=== PATIENT | female | born 1950 | race African-American/Black ===

== ENCOUNTER 2016-11-09 23:17 | Emergency (ER) | payer MEDICARE, OTHER ==
[2016-11-09] MEDS ORDERED: LORazepam 2 MG/ML DISP.SYRIN ONE (23:35)
[2016-11-09] MEDS: LORazepam 2 MG/ML DISP.SYRIN IV ONE (23:39)
--- NOTE | 2016-11-09 23:48 | ERNOTE ---
Neuro HPI ER Record Presenting Symptoms: other - seizure activity Time Seen by Provider: 11/09/16 23:35 Source: EMS, past records Immunizations: IMMUNIZATION HX Immunizations Up to Date No History of Influenza Vaccine No Hx Pneumococcal Vaccination No Allergies/Adverse Reactions: Allergies Allergy/AdvReac Type Severity Reaction Status Date / Time levetiracetam [From Keppra] Allergy Intermediate Other Verified 05/01/16 20:06 Cephalosporins Allergy Mild Hives Verified 01/02/16 13:25 cyclobenzaprine HCl Allergy Mild Hives Verified 01/02/16 13:25 [From Flexeril] acetaminophen [From Fioricet] Allergy Verified 01/02/16 13:25 butalbital [From Fioricet] Allergy Verified 01/02/16 13:25 caffeine [From Fioricet] Allergy Verified 01/02/16 13:25 tramadol Allergy Verified 01/02/16 13:25 codeine AdvReac Mild HEADACHES Verified 01/02/16 13:25 Penicillins AdvReac Mild HEADACHES Verified 01/02/16 13:25 Sulfa (Sulfonamide AdvReac Mild DIZZINESS Verified 01/02/16 13:25 Antibiotics) Home Medications: HOME MEDICATIONS Lovastatin 40 mg PO HS 05/05/14 [Last Taken Unknown] Oxybutynin Chloride [Ditropan] 5 mg PO BID PRN 05/05/14 [Last Taken Unknown] Acetaminophen [Tylenol] 1,000 mg PO Q6H PRN 03/28/15 [Last Taken Unknown] Ammonium Lactate [Amlactin] 1 appl TP BID 01/02/16 [Last Taken Unknown] Ascorbic Acid [Vitamin C] 250 mg PO DAILY 01/02/16 [Last Taken Unknown] Cholecalciferol (Vitamin D3) [Vitamin D3] 1,000 unit PO DAILY 01/02/16 [Last Taken Unknown] Diphenoxylate HCl/Atropine [Lomotil 2.5-0.025 mg Tablet] 1 each PO PRN PRN 01/01 [Last Taken Unknown] Loratadine [Claritin] 10 mg PO DAILY PRN 01/02/16 [Last Taken Unknown] PARoxetine HCL [Paxil] 20 mg PO DAILY 01/02/16 [Last Taken Unknown] Topiramate [Topamax] 100 mg PO BID 01/02/16 [Last Taken Unknown] Bisacodyl [Laxative] 10 mg PO DAILY PRN 05/01/16 [Last Taken Unknown] Calcium Carbonate/Vitamin D3 [Oyster Shell 500-Vit D3 200 Tb] 1 each PO BID [Last Taken Unknown] Guaifenesin/Dextromethorphan [Tussin Dm Syrup] 10 ml PO Q4H PRN 05/01/16 [Last Taken Unknown] Lamotrigine [Lamictal] 200 mg PO BID 05/01/16 [Last Taken Unknown] Meclizine HCl [Antivert] 25 mg PO Q4H PRN 05/01/16 [Last Taken Unknown] Polyethylene Glycol 3350 [Miralax] 17 gm PO DAILY PRN 05/01/16 [Last Taken Unknown] Sodium Chloride [Saline Mist] 2 spray NS QID PRN 05/01/16 [Last Taken Unknown] Albuterol Sulfate [Proventil Hfa] 1 puff IH Q6H PRN 11/10/16 [Last Taken Unknown ] Benzonatate [Tessalon] 100 mg PO QID PRN 11/10/16 [Last Taken Unknown] Ciprofloxacin HCl [Cipro] 500 mg PO BID #10 tab 11/10/16 [Last Taken Unknown] Meloxicam [Mobic] 15 mg PO DAILY 11/10/16 [Last Taken Unknown] Ondansetron HCl [Zofran] 4 mg PO Q4H PRN 11/10/16 [Last Taken Unknown] Phenazopyridine HCl [Urinary Pain Relief] 95 mg PO TID PRN 11/10/16 [Last Taken Unknown] - History of Present Illness Narrative: Pt was found by a roommate having a seizure. Unkown how long it had been going on. EMS was called and pt's SaO2 was low upon arrival of EMS. She was given a total of 5 mg of Valium by EMS enroute to the hospital. Upon arrival she was relaxed but soon after arrival she began tonic/ clonic movements again. She was then given 4 mg of ativan IV and stopped all seizure activity Onset: cannot confirm onset Severity: moderate, severe - Character of Deficits Baseline Cognition: Present: alert, oriented x 4 Review of Systems - Narrative Narrative: Pt remained post ictal/ sleeping due to medications throughout the night and no ROS was available - Patient's Past Medical History Patient History - Medical: GERD, Seizures, Other Patient History - Cardiac/Respiratory: No pertinent hx Patient History - Cancer: Breast, Surgical Treatment Patient History - Surgical Procedures: No surgical history, Colon Resection, Other Patient History - Other: None - Social History Living Situations: home Abuse History: No History of abuse Psych History: No pertinent hx Alcohol Use: none Drug Use: none - Immunizations Immunizations Up to Date: No Hx Pneumococcal Vaccination: No History of Influenza Vaccine: No Physical Exam - Physical Exam General Appearance: Present: wd/wn, lethargic - between seizure Ears, Nose, Throat: Present: normal ENT inspection - no oral trauma noted Neck: Present: normal inspection Respiratory: Present: no respiratory distress, normal breath sounds, no accessory muscle use Cardiovascular/Chest: Present: regular rate, rhythm, no murmur, normal peripheral pulses Gastrointestinal/Abdominal: Present: normal bowel sounds Extremity Exam: Present: normal inspection, no edema Skin Exam: Present: normal color, warm/dry Grace Coma Scale - Assess Eye Opening: To Pain - initially Motor: Withdraws to Pain Verbal: Confused - Total Coma Scale Total: 10 ED Progress - Results and Orders Patient's Lab Results:: I have reviewed the patient's lab results. Results and Orders: Laboratory Tests 11/09/16 11/09/16 11/10/16 00:08 00:08 00:50 WBC 7.7 Hgb 13.1 Hct 40.1 Plt Count 221 Sodium 143 H Potassium 3.4 Chloride 105 Carbon Dioxide 26.2 Anion Gap 15.2 H BUN 11 D Creatinine 1.10 Est GFR (Non-Af Amer) 65 BUN/Creatinine Ratio 10.0 Random Glucose 134 H Calcium 8.6 Total Bilirubin 0.4 AST 71 H ALT 58 Alkaline Phosphatase 68 Total Protein 7.5 Albumin 3.5 Urine Color Yellow Urine Appearance Cloudy Urine pH 8.0 H Ur Specific [place] 1.010 Urine Protein 30 H Urine Glucose (UA) Negative Urine Ketones Negative Urine Blood 10 H Urine Nitrate Positive H Urine Bilirubin Negative Prot Sulfosalicylic Acd 1+ Urine Urobilinogen Normal Ur Leukocyte Esterase 75 H Urine RBC 0-5 Urine WBC 0-5 Ur Epithelial Cells 0-5 Urine Bacteria 3+ H Urine Culture Comments Culture to follow Urine Opiates Screen Barbiturate Screen Ur Phencyclidine Scrn Urine Amphetamine U Benzodiazepines Scrn Urine Cocaine Screen Urine Marijuana (THC) 11/10/16 00:50 WBC Hgb Hct Plt Count Sodium Potassium Chloride Carbon Dioxide Anion Gap BUN Creatinine Est GFR (Non-Af Amer) BUN/Creatinine Ratio Random Glucose Calcium Total Bilirubin AST ALT Alkaline Phosphatase Total Protein Albumin Urine Color Urine Appearance Urine pH Ur Specific [place] Urine Protein Urine Glucose (UA) Urine Ketones Urine Blood Urine Nitrate Urine Bilirubin Prot Sulfosalicylic Acd Urine Urobilinogen Ur Leukocyte Esterase Urine RBC Urine WBC Ur Epithelial Cells Urine Bacteria Urine Culture Comments Urine Opiates Screen Negative Barbiturate Screen Negative Ur Phencyclidine Scrn Negative Urine Amphetamine Negative U Benzodiazepines Scrn Negative Urine Cocaine Screen Negative Urine Marijuana (THC) Negative - Vital Signs Patient's Vital Signs:: I have reviewed the patient's vital signs. Vital Signs: Vital Signs 11/09/16 23:20 Temperature 37.2 C Pulse Rate 131 H Respiratory 33 H Rate Blood Pressure 188/94 - Progress/Reassessment Chief Complaint: Seizure Activity Progress:: Improved Progress Note-Subjective: 11/10/16 00:26 No seizure activity at this time. Pt arouses to voice, attempts to speak but words are not comprehensible. 11/10/16 06:32 Awake and alert, carries on appropriate conversation. Departure Clinical Impression: Seizure Qualifiers: Convulsion type: unspecified Qualified Code(s): R56.9 - Unspecified convulsions UTI (urinary tract infection) Qualifiers: Urinary tract infection type: acute cystitis Hematuria presence: with hematuria Qualified Code(s): N30.01 - Acute cystitis with hematuria - Departure Disposition: Home self-care Condition: Good Instructions: Seizure, Adult, [id number] Prescriptions: Ciprofloxacin HCl [Cipro] 500 mg PO BID #10 tab
[2016-11-10 00:18] LABS: Hematocrit 40.1 % (37.0-47.0); Hemoglobin 13.1 gm/dL (12.5-16.0); Mean Cell Volume 94.8 fl (78-100); Mean Corpuscular Hgb Conc 32.7 g/dl (32-36); Mean Platelet Volume 11.1 fl (6.0-9.5); Neutrophil # 3.4 K/mm3 (1.3-6.0); Neutrophil % 43.4 % (42-75.0); Platelet Count 221 K/mm3 (150-450); Red Blood Count 4.23 M/mm3 (4.2-5.4); Red Cell Distribution Width 13.9 % (11.5-14.0); White Blood Count 7.7 K/mm3 (4.0-10.5)
--- OUTSIDE RECORDS SUMMARY | 2016-11-10 00:24 | XMS REPORT | Continuity of Care Document ---
:1950 Author Organization [facility] ([facility]) Address [address] [place] [address] Phone [phone] Care Team Providers Name Role Phone [phone], Need To Check Primary Care Provider Unavailable Source Comments This disclosure is being made pursuant to the Care Everywhere program, applicable federal and state laws, and may not contain all informaitonavailable regarding this patient.[facility] ([facility]) Active Allergies and Adverse Reactions Allergen Noted Date Severity Reactions Comments Butalbital Unknown [id number] 01/21/2009 High Headache Caffeine Seizure Cephalosporins Urticaria (Hives) Codeine OTHER hot flashes Cyclobenzaprine Unknown Latex 05/21/2010 Rash Levetiracetam Dizziness Penicillins Urticaria (Hives) Sulfadoxine Dizziness Current Medications Prescription Sig. Disp. Refills Start Date End Date Status oxybutynin (DITROPAN) 5 take 5 mg by mouth Active mg tablet 2 times daily. ammonium lactate apply 1 application Active (LACLOTION) 12 % lotion topically 2 times daily. rub in to affected area well lovaSTATIN (MEVACOR) 40 take 40 mg by mouth Active mg tablet every evening. POLYETHYLENE GLYCOL take by mouth. 1 Active 3350 (MIRALAX PO) cap full twice a day omeprazole (PRILOSEC) Take 20 mg by mouth Active 20 mg capsule daily. paroxetine (PAXIL CR) take 25 mg by mouth Active 25 mg CR tablet daily. acetaminophen (TYLENOL Take 1-2 Tabs by Active EXTRA STRENGTH) 500 mg mouth every 4 hours tablet as needed. cholecalciferol take 1,000 Units by Active (VITAMIN D) 1,000 unit mouth daily. Tab tablet calcium Take 1 Tab by mouth Active carbonate-vitamin D 3 times daily with (CALCIUM 500+D) 1,250 meals. mg-200 unit per tablet lamoTRIgine 200 mg Take 1.5 tabs (300 105 Tab 11 01/18/2012 Active tablet mg) in the AM and 2 tabs (400 mg) in the PM. Indications: Complex-Partial Epilepsy topiramate 200 mg Take 1 Tab by mouth 60 Tab 11 01/18/2012 Active tablet 2 times daily. Indications: Complex-Partial Epilepsy topiramate 50 mg tablet Take 1 Tab by mouth 60 Tab 11 01/18/2012 Active 2 times daily. 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, without mention of intractable epilepsy Immunizations Name Dates Previously Given Next Due Influenza, unspecified 06/05/2005 Social History Tobacco Use Types Packs/Day Years Used Date Never Smoker Smokeless Tobacco: Never Used Tobacco Cessation:Counseling Given: Yes Comments: Last Filed Vital Signs Vital Sign Reading Time Taken Blood Pressure 138/90 01/18/2012 1:29 PM CDT Pulse 74 01/18/2012 1:29 PM CDT Temperature 36.4 C (97.52 F) 05/21/2008 8:00 AM CDT Respiratory Rate 16 05/21/2008 8:00 AM CDT Height 1.575 m (5' 2") 01/18/2012 1:29 PM CDT Weight 91.173 kg (201 lb) 01/18/2012 1:29 PM CDT Body Mass Index 36.75 01/18/2012 1:29 PM CDT Oxygen Saturation - - Plan of Care Health Maintenance Due Date Last Done Comments HCV Screening 1950 Hepatitis B Vaccine (1 of 3 - Primary Series) 1950 Tdap Vaccine 11/22/1963 Lipid Disorder Screening 1970 Td Vaccine 1970 Cervical Cancer Screening 1982 Mammogram 1992 Colonoscopy 2002 Zoster Vaccine 2012 Influenza Vaccine: Seasonal (#1) 04/05/2016 06/05/2005 Results from Last 3 Months Not on file
[2016-11-10 00:26] LABS: Albumin * 3.5 gm/dl (3.4-5.0); Anion Gap 15.2 mmol/L (6.8-13.8); Bilirubin, Total 0.4 mg/dL (0.0-1.1); Ca. Corrected For Albumin 8.7 mg/dL (8.4-10.2); Calcium * 8.6 mg/dL (7.9-10.9); Carbon Dioxide 26.2 mmol/L (24-32.6); Potassium 3.4 mmol/L (3.4-4.6); Total Protein 7.5 gm/dL (6.2-8.2)
[2016-11-10] MEDS: NORMAL SALINE 1,000 ML IV ONE (00:40)
[2016-11-10 00:57] LABS: Urine Bilirubin Negative (NEGATIVE); Urine Ketone Negative (NEGATIVE); Urine Protein 30 mg/dL (NEGATIVE); Urine Urobilinogen Normal (NORMAL)
[2016-11-10 01:11] LABS: Urine Appearance Cloudy; Urine Bacteria 3+; Urine Blood 10 /ul (NEGATIVE); Urine Color Yellow; Urine Nitrite Positive (NEGATIVE); Urine RBC 0-5 /hpf (0-5); Urine WBC 0-5 /hpf (0-5)
[2016-11-10 01:20] LABS: Cocaine Ur Negative (NEGATIVE); Urine Barbiturate Negative (NEGATIVE); Urine Benzodiazepines Negative (NEGATIVE); Urine Opiates Negative (NEGATIVE); Urine PCP Negative (NEGATIVE); Urine THC Negative (NEGATIVE)
[2016-11-10] MEDS ORDERED: CIPROFLOXACIN HCL 250 MG TABLET ONE (06:39)
[2016-11-10] MEDS: CIPROFLOXACIN HCL 250 MG TABLET PO ONE (06:40)
[2016-11-10 06:54] VITALS: BP 110/67
== END 2016-11-10 07:29 | disposition home or self-care (01) ==
LOC: ER 23:17
DX: R56.9 Unspecified convulsions (principal); N30.01 Acute cystitis with hematuria; K21.9 Gastro-esophageal reflux disease without esophagitis

== ENCOUNTER 2017-01-01 21:33 | Inpatient (IN) | payer MEDICARE, OTHER ==
--- NOTE | 2017-01-01 21:48 | ERNOTE ---
Dizziness ER Record Date of Service: 01/01/17 Presenting Symptoms: dizziness Time Seen by Provider: 01/01/17 21:40 Source: patient Exam Limitations: clinical condition - POOR HISTORIAN, ENDENTULOUS, MUMBLY SPEECH WITH? CONFUSION, POSSIBLY POST -ICTAL. . Immunizations: IMMUNIZATION HX Immunizations Up to Date No History of Influenza Vaccine No Hx Pneumococcal Vaccination No Allergies/Adverse Reactions: Allergies Allergy/AdvReac Type Severity Reaction Status Date / Time levetiracetam [From Keppra] Allergy Intermediate Other Verified 05/01/16 20:06 Cephalosporins Allergy Mild Hives Verified 01/02/16 13:25 cyclobenzaprine HCl Allergy Mild Hives Verified 01/02/16 13:25 [From Flexeril] acetaminophen [From Fioricet] Allergy Verified 01/02/16 13:25 butalbital [From Fioricet] Allergy Verified 01/02/16 13:25 caffeine [From Fioricet] Allergy Verified 01/02/16 13:25 tramadol Allergy Verified 01/02/16 13:25 codeine AdvReac Mild HEADACHES Verified 01/02/16 13:25 Penicillins AdvReac Mild HEADACHES Verified 01/02/16 13:25 Sulfa (Sulfonamide AdvReac Mild DIZZINESS Verified 01/02/16 13:25 Antibiotics) Home Medications: HOME MEDICATIONS Lovastatin 40 mg PO HS 05/05/14 [Last Taken Unknown] Oxybutynin Chloride [Ditropan] 5 mg PO BID PRN 05/05/14 [Last Taken Unknown] Acetaminophen [Tylenol] 1,000 mg PO Q8H PRN 03/28/15 [Last Taken Unknown] Ammonium Lactate [Amlactin] 1 appl TP BID 01/02/16 [Last Taken Unknown] Ascorbic Acid [Vitamin C] 250 mg PO DAILY 01/02/16 [Last Taken Unknown] Cholecalciferol (Vitamin D3) [Vitamin D3] 1,000 unit PO DAILY 01/02/16 [Last Taken Unknown] Diphenoxylate HCl/Atropine [Lomotil 2.5-0.025 mg Tablet] 1 each PO PRN PRN 01/01 [Last Taken Unknown] Loratadine [Claritin] 10 mg PO DAILY PRN 01/02/16 [Last Taken Unknown] PARoxetine HCL [Paxil] 20 mg PO DAILY 01/02/16 [Last Taken Unknown] Topiramate [Topamax] 100 mg PO BID 01/02/16 [Last Taken Unknown] Bisacodyl [Laxative] 10 mg PO DAILY PRN 05/01/16 [Last Taken Unknown] Calcium Carbonate/Vitamin D3 [Oyster Shell 500-Vit D3 200 Tb] 1 each PO BID [Last Taken Unknown] Meclizine HCl [Antivert] 25 mg PO Q4H PRN 05/01/16 [Last Taken Unknown] Polyethylene Glycol 3350 [Miralax] 17 gm PO DAILY PRN 05/01/16 [Last Taken Unknown] Sodium Chloride [Saline Mist] 2 spray NS QID PRN 05/01/16 [Last Taken Unknown] guaiFENesin/DEXTROMETHORPHAN [Tussin Dm Syrup] 10 ml PO Q4H PRN 05/01/16 [Last Taken Unknown] lamoTRIgine [Lamictal] 200 mg PO BID 05/01/16 [Last Taken Unknown] Albuterol Sulfate [Proventil Hfa] 1 puff IH Q6H PRN 11/10/16 [Last Taken Unknown ] Benzonatate [Tessalon] 100 mg PO QID PRN 11/10/16 [Last Taken Unknown] Meloxicam [Mobic] 15 mg PO DAILY 11/10/16 [Last Taken Unknown] Ondansetron HCl [Zofran] 4 mg PO Q4H PRN 11/10/16 [Last Taken Unknown] Phenazopyridine HCl [Urinary Pain Relief] 95 mg PO TID PRN 11/10/16 [Last Taken Unknown] Calcium Carbonate [Tums Ultra Strength] 750 mg PO PRN PRN 01/02/17 [Last Taken Unknown] Mag Hydrox/Aluminum Hyd/Simeth [Maalox Advanced Suspension] 10 ml PO BID PRN [Last Taken Unknown] Menthol [Absorbine Pain Relieving] 1 appl TP TID PRN 01/02/17 [Last Taken Unknown] Topiramate [Topamax] 50 mg PO 0900 01/02/17 [Last Taken Unknown] - History of Present Illness Narrative: PT HERE FOR HX THAT SHE GOT DIZZY AND 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 UNCLEAR IF IT WAS WITNESSED. EMS WAS CALLED TO TRANSPORT HERE. SHE HAS A HX OF SEIZURES BUT NO SEIZURE ACTIVITY WAS REPORTED. SHE APPARENTLY LIVES WITH AN OLDER GENTLEMAN ACCORDING TO EMS AND UNKNOWN IF HE WITNESSED THE REPORTED EVENT. SHE IS REPORTED TO BE ON DILANTIN AND HAS A PAST HX OF POLIO WITH LEFT SIDED WEAKNESS. THE PATIENT IS NOT A GOOD HISTORIAN. SHE DID C/O OF SOME NECK PAIN TO EMS AT THE SCENE SO THEY APPLIED C-COLLAR. Timing and Duration: cannot confirm onset Review of Systems - Review of Systems Constitutional: Present: See HPI - PT IS A POOR UNRELIABLE HISTORIAN AT PRESENT. - Patient's Past Medical History Patient History - Medical: GERD, Seizures, Other Patient History - Cardiac/Respiratory: No pertinent hx Patient History - Cancer: Breast, Surgical Treatment Patient History - Surgical Procedures: No surgical history, Colon Resection, Other Patient History - Other: None - Family History Mother Family History - Medical: Family History - Cancer: Other - Social History Living Situations: home Abuse History: No History of abuse Psych History: No pertinent hx Alcohol Use: none Drug Use: none - Immunizations Immunizations Up to Date: No Hx Pneumococcal Vaccination: No History of Influenza Vaccine: No Physical Exam - Physical Exam General Appearance: Present: wd/wn, alert, no apparent distress - ELDERLY LADY WITH SLOW MUMBLING SPEECH THOUGH IS NOW A & O AND DENIES ANY COMPLAINTS AND HAS NO OBVIOUS FOCAL DEFICIT. Eye Exam: Normal inspection: bilateral - HER EYES DO APPEAR TO BE PROPTOTIC. , PERRL: bilateral, EOMI: bilateral Ears, Nose, Throat: Present: normal except - - EDENTULOUS AND HAS DRY MUCOUS MEMBRANE. Neck: Present: normal inspection, supple, full range of motion, tender posterior midline - SHE INITIALLY C/O POST NECK PAIN, EMS APPLIED COLLAR, CT- CERVICAL HAS RETURNED NEGATIVE AND COLLAR REMOVED AND NOW WITH NO NECK PAIN Respiratory: Present: no respiratory distress, normal breath sounds, no accessory muscle use, chest nontender, lungs clear Cardiovascular/Chest: Present: regular rate, rhythm, no murmur, normal peripheral pulses Gastrointestinal/Abdominal: Present: normal bowel sounds, nontender, soft, no organomegaly, other - OBESE ABDOMEN Back Exam: Present: normal inspection, normal range of motion, no CVA tenderness , no vertebral tenderness Extremity Exam: Present: normal except - - MILD LEFT EXT WEAKNESS, SHE STATES THIS IS CHRONIC FROM HX OF POLIO Skin Exam: Present: normal color, warm/dry ED Progress - Results and Orders Patient's Lab Results:: I have reviewed the patient's lab results. Results and Orders: LABS ARE POSITIVE FOR K+ = 2.9 WHICH IS LOWER THAN RECENT VALUES RUNNING ABOUT 3.4. WBC = 14.4 WITH 65% SEGS AND BANDS. BUN / CREAT = 2.9/1.9, WHICH IS INCREASED FROM HER MOSST RECENT VALUES THAT WERE NORMAL. AND HER URINE IS POSITIVE FOR NITRITES , WBC AND 3 + BACT. CULTURE IS PENDING. I HAVE ADDED A LACTIC. SHE APPEARS NOT TO BE ON DILANTIN , DESPITE EMS REPORT. - Vital Signs Patient's Vital Signs:: I have reviewed the patient's vital signs. - EKG EKG: NSR, nonspecific ST T wave changes, unchanged from - X-Ray X-Ray #1 X-Ray: chest Interpretation: Interp. by me - UNCHANGED FROM 2014 - CT/Ultrasound CT/Ultrasound Narrative: PT WITH NO ACUTE CHANGE ON CT OF BRAIN ACCORDING TO REED . SHE HAS MARKED CEREBELLAR ATROPHY WHICH APPEARS SAME 11/2014 BY MY REVIEW. SHE ALSO HAD A NEGATIVE CT OF HER NECK. - Progress/Reassessment Progress:: Improved Progress Note-Subjective: 01/02/17 00:31 PT IS RESPONDING CLEARER , ACCORDING TO NURSES THAT KNOW HER , AT HER NORMAL STATE. SHE DENIES PAIN OR PROBLEMS EXCEPT IS THRISTY. SHE CAN NOT GIVE BETTER HX THAN EARLIER EXCEPT THAT SHE HAD TO GET UP TO GO TO THE BATHROOM AND FELL. SHE DOES NOT KNOW IF SHE HAD A SEIZURE. BECAUSE OF HER LOW K+ AND UTI I HAVE CALLED MANAGER LEAN MIKE , WHO SAYS SHE WILL CALL ME BACK. IN THE MEANTIME I HAVE STARTED IV KCL AND CIPRO AND AM CHECKING A LACTIC ACID THOUGH SHE HAS NOT FEVER. - Transfer of Care Expected Disposition: Admit Plan - Plan Plan: D/W HOSPITALIST ( IMKE) TO ARRANGE ADMISSION Departure Clinical Impression: Altered awareness, transient, Hypokalemia, Azotemia Fall Qualifiers: Encounter type: subsequent encounter Qualified Code(s): W19.XXXD - Unspecified fall, subsequent encounter UTI (urinary tract infection) Qualifiers: Urinary tract infection type: site unspecified Hematuria presence: without hematuria Qualified Code(s): N39.0 - Urinary tract infection, site not specified - Departure Disposition: [facility] Condition: Fair
[2017-01-01 22:10] LABS: Hematocrit 40.8 % (37.0-47.0); Hemoglobin 13.7 gm/dL (12.5-16.0); Mean Cell Volume 91.3 fl (78-100); Mean Corpuscular Hemoglobin 30.6 pg (27-31); Mean Corpuscular Hgb Conc 33.6 g/dl (32-36); Mean Platelet Volume 11.3 fl (6.0-9.5); Platelet Count 197 K/mm3 (150-450); Red Blood Count 4.47 M/mm3 (4.2-5.4); Red Cell Distribution Width 13.7 % (11.5-14.0); White Blood Count 14.4 K/mm3 (4.0-10.5)
[2017-01-01 22:15] LABS: Total Cells Counted 100
--- OUTSIDE RECORDS SUMMARY | 2017-01-01 22:17 | XMS REPORT | Continuity of Care Document ---
:1950 Author Organization [facility] ([facility]) Address [address] [place] [address] Phone [phone] Care Team Providers Name Role Phone [phone], Need To Check Primary Care Provider Unavailable Source Comments This disclosure is being made pursuant to the Care Everywhere program, applicable federal and state laws, and may not contain all informaitonavailable regarding this patient.[facility] ([facility]) Active Allergies and Adverse Reactions Allergen Noted Date Severity Reactions Comments Butalbital Unknown [id number]-[id number]-Kuog 01/21/2009 High Headache Caffeine Seizure Cephalosporins Urticaria [...]
[2017-01-01 22:23] LABS: Prothrombin Time (Patient) 11.3 Seconds (9.4-11.4)
[2017-01-01 22:24] LABS: INR 1.09 INR (0.90-1.10)
[2017-01-01 22:27] LABS: Urine Bilirubin Negative (NEGATIVE); Urine Blood 250 /ul (NEGATIVE); Urine Ketone Negative (NEGATIVE); Urine Protein 100 mg/dL (NEGATIVE); Urine Urobilinogen Normal (NORMAL)
[2017-01-01 22:36] LABS: ALT 28 U/L (19-67); AST 41 U/L (0-48); Albumin * 3.1 gm/dl (3.4-5.0); Alkaline Phosphatase * 83 U/L (50-170); Anion Gap 15.1 mmol/L (6.8-13.8); BUN/Creatinine Ratio 15.2 (9.0-21.6); Bilirubin, Total 1.2 mg/dL (0.0-1.1); Blood Urea Nitrogen 29 mg/dL (3-23); Ca. Corrected For Albumin 10.3 mg/dL (8.4-10.2); Calcium * 9.9 mg/dL (7.9-10.9); Carbon Dioxide 24.8 mmol/L (24-32.6); Chloride 100 mmol/L (97-106); Glucose * 127 mg/dL (70-110); Potassium 2.9 mmol/L (3.4-4.6); Salicylate Less than 2.8 mg/dL (2.8-20.0); Sodium 137 mmol/L (132-142); TSH * 0.682 uIU/mL (0.358-3.74); Total Protein 8.5 gm/dL (6.2-8.2); Troponin I Less than 0.017 ng/ml (0.00-0.10)
[2017-01-01 22:37] LABS: Cocaine Ur Negative (NEGATIVE); Urine Barbiturate Negative (NEGATIVE); Urine Benzodiazepines Negative (NEGATIVE); Urine Opiates Negative (NEGATIVE); Urine PCP Negative (NEGATIVE); Urine THC Negative (NEGATIVE)
[2017-01-01 22:42] LABS: Band 5 % (0-2.0); Eosinophil 1 % (0-3); Lymphocyte 23 % (20-51); Monocyte 11 % (0-9); Neutrophil 60 % (42-75); Neutrophil # 8.6 K/mm3 (1.3-6.0)
[2017-01-01 22:43] LABS: Platelet Estimate Normal (NORMAL); RBC Morphology Normal (NORMAL)
[2017-01-01 22:51] LABS: Urine Appearance Clear; Urine Bacteria 3+; Urine Color Yellow; Urine Nitrite Positive (NEGATIVE); Urine RBC 0-5 /hpf (0-5)
[2017-01-02] MEDS: CIPROFLOXACIN LACTATE/D5W 400 MG/200 ML BAG IV SCH ×4 (00:54→23:50)
[2017-01-02] MEDS: NORMAL SALINE 1,000 ML IV PRN ×3 (01:34→22:06)
[2017-01-02] MEDS: POTASSIUM CHLORIDE 100 ML IV SCH ×4 (01:34→04:34)
--- OUTSIDE RECORDS SUMMARY | 2017-01-02 02:14 | XMS REPORT | Continuity of Care Document ---
:1950 Author Organization [facility] ([facility]) Address [address] [place] [address] Phone [phone] Care Team Providers Name Role Phone [phone], Need To Check Primary Care Provider Unavailable Source Comments This disclosure is being made pursuant to the Care Everywhere program, applicable federal and state laws, and may not contain all informaitonavailable regarding this patient.[facility] ([facility]) Active Allergies and Adverse Reactions Allergen Noted Date Severity Reactions Comments Butalbital Unknown Hmxfelykly-Ylesgjbqatcfj-Oqxc 01/21/2009 High Headache Caffeine Seizure Cephalosporins Urticaria [...]
[2017-01-02] MEDS ORDERED: SODIUM CHLORIDE 45 SPRAY BTL NS PRN (04:48)
[2017-01-02] MEDS ORDERED: ONDANSETRON HCL 4 MG TABLET PO PRN (04:48)
[2017-01-02] MEDS ORDERED: MECLIZINE HCL 25 MG TABLET PO PRN (04:48)
[2017-01-02] MEDS ORDERED: guaiFENesin/DEXTROMETHORPHAN 118 ML BTL PO PRN (04:48)
[2017-01-02] MEDS ORDERED: OXYBUTYNIN CHLORIDE 5 MG TABLET PO PRN (04:48)
[2017-01-02] MEDS ORDERED: MAG HYDROX/ALUMINUM HYD/SIMETH 30 ML UDC PO PRN (04:48)
[2017-01-02] MEDS ORDERED: PHENAZOPYRIDINE HCL 100 MG TABLET PO PRN (05:00)
[2017-01-02] MEDS ORDERED: POLYETHYLENE GLYCOL 3350 119 GM BTL PO PRN ×2 (05:00→07:35)
[2017-01-02] MEDS ORDERED: LORazepam 2 MG/ML DISP.SYRIN IV PRN (05:02)
[2017-01-02] MEDS ORDERED: ALBUTEROL SULFATE 2.5 MG/0.5 ML VIAL.NEB IH PRN (05:15)
[2017-01-02] MEDS ORDERED: LORATADINE 10 MG TABLET PO PRN (05:15)
[2017-01-02] MEDS ORDERED: TROLAMINE SALICYLATE 90 APPL TUBE TP PRN ×2 (05:15→07:34)
[2017-01-02 06:26] LABS: Albumin * 2.6 gm/dl (3.4-5.0); BUN/Creatinine Ratio 15.4 (9.0-21.6); Bilirubin, Total 0.9 mg/dL (0.0-1.1); Ca. Corrected For Albumin 10.2 mg/dL (8.4-10.2); Calcium * 9.4 mg/dL (7.9-10.9); Carbon Dioxide 23.4 mmol/L (24-32.6); Potassium 3.4 mmol/L (3.4-4.6); Total Protein 7.7 gm/dL (6.2-8.2)
--- NOTE | 2017-01-02 07:35 | HP ---
Chief Complaint - Chief Complaint Date of Service: 01/02/17 Time of Service: 05:00 Chief Complaint: confusion, fall History of Present Illness: 66 years old female adm to the hospital with reports of recurrent falls x4 days. Pt stated when she stood up she get very dizzy and fell. She called her neighbors who brought her to the hospital. Pt stated on this last fall she hit her head and denies LOC. She denies other associates s/s before and after the fall. PMH significant for Seizure, GERD, Hiatal hernia and hyperlipidemia. Pt stated her left side weakness is as a result of cerebral palsy. In ER CT head no acute intra-cranial abnormality, K+ 2.9---> supplemented, UTI noted and she was started on cipro. Pt denies recent seizure activity and take Topamax consistently. Plan of care discussed with pt she verbalized understanding and agrees. - Patient's Past Medical History Patient History - Medical: GERD, Seizures, Other - hiatal hernia Patient History - Cardiac/Respiratory: No pertinent hx, Hyperlipidemia Patient History - Cancer: Breast, Surgical Treatment Patient History - Surgical Procedures: No surgical history, Colon Resection, Other - ankle repair, left lumpectomy Patient History - Other: None - Family History Mother Family History - Medical: Family History - Cancer: Other - Social History Living Situations: home Abuse History: No History of abuse Psych History: No pertinent hx Smoking Status: Former smoker Have you smoked in the past 12 months: No Alcohol Use: none Drug Use: none - Immunizations Immunizations Up to Date: No Hx Pneumococcal Vaccination: No History of Influenza Vaccine: No Review Of Systems (GEN) - Review of Systems Generalized/Overall Review: Present: No Symptoms Reported EENTM: Present: No Symptoms Reported Respiratory: Present: No Symptoms Reported Cardiac: Present: No Symptoms Reported Abdominal: Present: No Symptoms Reported Genitourinary: Present: No Symptoms Reported Musculoskeletal: Present: No Symptoms Reported Neurological: Present: Pre-existing Deficit - leftside hemiparesis, Other - dizziness Skin: Present: No Symptoms Reported Endocrine: Present: No Symptoms Reported Immunizations: IMMUNIZATION HX Immunizations Up to Date No History of Influenza Vaccine No Hx Pneumococcal Vaccination No Allergies/Adverse Reactions: Allergies Allergy/AdvReac Type Severity Reaction Status Date / Time levetiracetam [From Keppra] Allergy Intermediate Other Verified 08/27/16 20:06 Cephalosporins Allergy Mild Hives Verified 01/02/16 13:25 cyclobenzaprine HCl Allergy Mild Hives Verified 01/02/16 13:25 [From Flexeril] acetaminophen [From Fioricet] Allergy Verified 01/02/16 13:25 butalbital [From Fioricet] Allergy Verified 01/02/16 13:25 caffeine [From Fioricet] Allergy Verified 01/02/16 13:25 tramadol Allergy Verified 01/02/16 13:25 codeine AdvReac Mild HEADACHES Verified 01/02/16 13:25 Penicillins AdvReac Mild HEADACHES Verified 01/02/16 13:25 Sulfa (Sulfonamide AdvReac Mild DIZZINESS Verified 01/02/16 13:25 Antibiotics) Home Medications: HOME MEDICATIONS Lovastatin 40 mg PO HS 05/05/14 [Last Taken Unknown] Oxybutynin Chloride [Ditropan] 5 mg PO BID PRN 05/05/14 [Last Taken Unknown] Acetaminophen [Tylenol] 1,000 mg PO Q8H PRN 03/28/15 [Last Taken Unknown] Ammonium Lactate [Amlactin] 1 appl TP BID 01/02/16 [Last Taken Unknown] Ascorbic Acid [Vitamin C] 250 mg PO DAILY 01/02/16 [Last Taken Unknown] Cholecalciferol (Vitamin D3) [Vitamin D3] 1,000 unit PO DAILY 01/02/16 [Last Taken Unknown] Diphenoxylate HCl/Atropine [Lomotil 2.5-0.025 mg Tablet] 1 each PO PRN PRN 01/01 [Last Taken Unknown] Loratadine [Claritin] 10 mg PO DAILY PRN 01/02/16 [Last Taken Unknown] PARoxetine HCL [Paxil] 20 mg PO DAILY 01/02/16 [Last Taken Unknown] Topiramate [Topamax] 100 mg PO BID 01/02/16 [Last Taken Unknown] Bisacodyl [Laxative] 10 mg PO DAILY PRN 05/01/16 [Last Taken Unknown] Calcium Carbonate/Vitamin D3 [Oyster Shell 500-Vit D3 200 Tb] 1 each PO BID [Last Taken Unknown] Meclizine HCl [Antivert] 25 mg PO Q4H PRN 05/01/16 [Last Taken Unknown] Polyethylene Glycol 3350 [Miralax] 17 gm PO DAILY PRN 05/01/16 [Last Taken Unknown] Sodium Chloride [Saline Mist] 2 spray NS QID PRN 05/01/16 [Last Taken Unknown] guaiFENesin/DEXTROMETHORPHAN [Tussin Dm Syrup] 10 ml PO Q4H PRN 05/01/16 [Last Taken Unknown] lamoTRIgine [Lamictal] 200 mg PO BID 05/01/16 [Last Taken Unknown] Albuterol Sulfate [Proventil Hfa] 1 puff IH Q6H PRN 11/10/16 [Last Taken Unknown ] Benzonatate [Tessalon] 100 mg PO QID PRN 11/10/16 [Last Taken Unknown] Meloxicam [Mobic] 15 mg PO DAILY 11/10/16 [Last Taken Unknown] Ondansetron HCl [Zofran] 4 mg PO Q4H PRN 11/10/16 [Last Taken Unknown] Phenazopyridine HCl [Urinary Pain Relief] 95 mg PO TID PRN 11/10/16 [Last Taken Unknown] Calcium Carbonate [Tums Ultra Strength] 750 mg PO PRN PRN 01/02/17 [Last Taken Unknown] Mag Hydrox/Aluminum Hyd/Simeth [Maalox Advanced Suspension] 10 ml PO BID PRN [Last Taken Unknown] Menthol [Absorbine Pain Relieving] 1 appl TP TID PRN 01/02/17 [Last Taken Unknown] Topiramate [Topamax] 50 mg PO 0900 01/02/17 [Last Taken Unknown] Exam - Exam Vital Signs: Vital Signs - Last Taken Temp 37.1 C 01/02/17 03:03 Pulse 87 01/02/17 03:03 Resp 18 01/02/17 03:03 BP 107/60 01/02/17 03:03 Pulse Ox 93 01/02/17 03:03 Constitutional: Present: Alert, Oriented x3, Cooperative, Well nourished, No distress, Middle aged ENT Exam: Present: moist mucous membranes Eye Exam: bilateral eye: PERRL Neck: Present: full range of motion Back Exam: Present: normal inspection Respiratory: Present: chest non-tender, lungs clear, normal breath sounds, no respiratory distress, no accessory muscle use Cardiovascular/Chest: Present: normal peripheral pulses, regular rate, rhythm, no chest tenderness, no edema, no gallop Peripheral Pulses: dorsalis-pedis (R): 3+, dorsalis-pedis (L): 3+ Abdomen: Present: Normal bowel sounds, soft, nontender, nondistended, no rebound tenderness /Rectal: Present: Exam deferred Extremity: Present: normal range of motion, non-tender, normal inspection, no pedal edema, no calf tenderness Skin Exam: Present: normal color, warm/dry, no cyanosis Lymphatic: Present: no adenopathy Neurologic: Present: alert, oriented x 3 Appearance: Present: appropriate appearance Eye contact: Present: cooperative Thoughts: Present: normal thought pattern, no apparent hallucination Diagnostic Studies: Abnormal Lab Results 01/02/17 Range/Units 05:25 Carbon Dioxide 23.4 L (24-32.6) mmol/L Anion Gap 14.0 H (6.8-13.8) mmol/L BUN 25 H (3-23) mg/dL Creatinine 1.62 H (0.4-1.4) mg/dL Est GFR (Non-Af Amer) 41 L D (60-130) mL/min Albumin 2.6 L (3.4-5.0) gm/dl Laboratory Results WBC 14.4 K/mm3 (4.0-10.5) H 01/01/17 22:05 RBC 4.47 M/mm3 (4.2-5.4) 01/01/17 22:05 Hgb 13.7 gm/dL (12.5-16.0) 01/01/17 22:05 Hct 40.8 % (37.0-47.0) 01/01/17 22:05 MCV 91.3 fl (78-100) 01/01/17 22:05 MCH 30.6 pg (27-31) 01/01/17 22:05 MCHC 33.6 g/dl (32-36) 01/01/17 22:05 RDW 13.7 % (11.5-14.0) 01/01/17 22:05 Plt Count 197 K/mm3 (150-450) 01/01/17 22:05 MPV 11.3 fl (6.0-9.5) H 01/01/17 22:05 Neutrophils % (Manual) 60 % (42-75) 01/01/17 22:05 Band Neuts % (Manual) 5 % (0-2.0) H 01/01/17 22:05 Lymphocytes % (Manual) 23 % (20-51) 01/01/17 22:05 Monocytes % (Manual) 11 % (0-9) H 01/01/17 22:05 Eosinophils % (Manual) 1 % (0-3) 01/01/17 22:05 Neutrophils # (Manual) 8.6 K/mm3 (1.3-6.0) H 01/01/17 22:05 Lymphocytes # (Manual) 3.3 k/mm3 (1.5-3.5) 01/01/17 22:05 Monocytes # (Manual) 1.6 k/mm3 (0.0-1.0) H 01/01/17 22:05 Eosinophils # (Manual) 0.1 k/mm3 (0.0-0.7) 01/01/17 22:05 Platelet Estimate Normal (NORMAL) 01/01/17 22:05 RBC Morphology Normal (NORMAL) 01/01/17 22:05 PT 11.3 Seconds (9.4-11.4) 01/01/17 22:05 INR (Anticoag Therapy) 1.09 INR (0.90-1.10) 01/01/17 22:05 Sodium 136 mmol/L (132-142) 01/02/17 05:25 Plasma Sodium 136 mmol/L (130-142) 01/02/17 05:25 Potassium 3.4 mmol/L (3.4-4.6) 01/02/17 05:25 Chloride 102 mmol/L (97-106) 01/02/17 05:25 Carbon Dioxide 23.4 mmol/L (24-32.6) L 01/02/17 05:25 Anion Gap 14.0 mmol/L (6.8-13.8) H 01/02/17 05:25 BUN 25 mg/dL (3-23) H 01/02/17 05:25 Creatinine 1.62 mg/dL (0.4-1.4) H 01/02/17 05:25 Est GFR (Non-Af Amer) 41 mL/min (60-130) L D 01/02/17 05:25 BUN/Creatinine Ratio 15.4 (9.0-21.6) 01/02/17 05:25 Random Glucose 107 mg/dL (70-110) 01/02/17 05:25 Lactic Acid, Venous 1.1 mmol/L (0.4-1.9) 01/02/17 00:30 Calcium 9.4 mg/dL (7.9-10.9) 01/02/17 05:25 Calcium Adj for Albumin 10.2 mg/dL (8.4-10.2) 01/02/17 05:25 Total Bilirubin 0.9 mg/dL (0.0-1.1) 01/02/17 05:25 AST 35 U/L (0-48) 01/02/17 05:25 ALT 25 U/L (19-67) 01/02/17 05:25 Alkaline Phosphatase 68 U/L (50-170) 01/02/17 05:25 Troponin I Less than 0.017 ng/ml (0.00-0.10) 01/01/17 22:05 Total Protein 7.7 gm/dL (6.2-8.2) 01/02/17 05:25 Albumin 2.6 gm/dl (3.4-5.0) L 01/02/17 05:25 TSH 0.682 uIU/mL (0.358-3.74) 01/01/17 22:05 Urine Color Yellow 01/01/17 22:11 Urine Appearance Clear 01/01/17 22:11 Urine pH 6.0 pH (5.0-7.0) 01/01/17 22:11 Ur Specific [place] 1.020 SP.GR. (1.005-1.010) 01/01/17 22:11 Urine Protein 100 mg/dL (NEGATIVE) H 01/01/17 22:11 Urine Glucose (UA) Negative mg/dL (NEGATIVE) 01/01/17 22:11 Urine Ketones Negative mg/dL (NEGATIVE) 01/01/17 22:11 Urine Blood 250 /ul (NEGATIVE) H 01/01/17 22:11 Urine Nitrate Positive (NEGATIVE) H 01/01/17 22:11 Urine Bilirubin Negative mg/dl (NEGATIVE) 01/01/17 22:11 Prot Sulfosalicylic Acd 2+ mg/dL (0) H 01/01/17 22:11 Urine Urobilinogen Normal EU/dl (NORMAL) 01/01/17 22:11 Ur Leukocyte Esterase Negative /ul (NEGATIVE) 01/01/17 22:11 Urine RBC 0-5 /hpf (0-5) 01/01/17 22:11 Urine WBC 5-10 /hpf (0-5) H 01/01/17 22:11 Ur Epithelial Cells None seen /hpf (0-5) 01/01/17 22:11 Urine Bacteria 3+ (NONE) H 01/01/17 22:11 Urine Culture Comments Culture to follow 01/01/17 22:11 Salicylates Less than 2.8 mg/dL (2.8-20.0) L 01/01/17 22:05 Urine Opiates Screen Negative (NEGATIVE) 01/01/17 22:11 Acetaminophen Less than 0.2 mcg/mL (10.0-30.0) L 01/01/17 22:05 Barbiturate Screen Negative (NEGATIVE) 01/01/17 22:11 Phenytoin Less than 0.5 mcg/mL (10-20) L 01/01/17 22:05 Ur Phencyclidine Scrn Negative (NEGATIVE) 01/01/17 22:11 Urine Amphetamine Negative (NEGATIVE) 01/01/17 22:11 U Benzodiazepines Scrn Negative (NEGATIVE) 01/01/17 22:11 Urine Cocaine Screen Negative (NEGATIVE) 01/01/17 22:11 Urine Marijuana (THC) Negative (NEGATIVE) 01/01/17 22:11 Ethyl Alcohol Less than 3.0 mg/dL (0.0-10.0) 01/01/17 22:05 Assessment/Plan - Narrative Narrative: Falls- posible due to left side weakness secondary to cerebral palsy vs confusion safety measures and use of assisting devices pt denies recent seizure activity Orthostatic BP pending PT eval and treatment UTI-Seen on UA Continue with cipro Urine culture pending Seizures-no activity Continue with Topomax as schedule safety measures while hospitalized. GERD- [place] Resume home dose of medications confusion- resolved Possible due to the UTI Hypokalemia- resolved on adm K= 2.9--->3.4 Overnight Potassium rider was supplemented Repeated K+ 4.3 Code status: Full VTE ppx: SCD and ambulate with assist Anticipate discharge home 0-1 day and follow up with PCP Time 30 minutes and previous records reviewed. - Assessment/Plan (1) UTI (urinary tract infection) Problem: Acute (2) Hypokalemia Problem: Acute (3) Seizure Problem: Chronic (4) GERD (gastroesophageal reflux disease) Problem: Chronic
[2017-01-02] MEDS ORDERED: DIPHENOXYLATE HCL/ATROP SULF 2.5 MG TABLET PO PRN (08:15)
[2017-01-02] MEDS ORDERED: BENZONATATE 100 MG CAPSULE PO PRN (08:15)
[2017-01-02] MEDS ORDERED: BISACODYL 5 MG TABLET.DR PO PRN (08:22)
[2017-01-02] MEDS ORDERED: CALCIUM CARBONATE 500 MG TAB.CHEW PO PRN (08:30)
[2017-01-02] MEDS ORDERED: TOPIRAMATE 50 MG TABLET PO SCH (09:00)
[2017-01-02] MEDS: CHOLECALCIFEROL 1,000 UNIT CAPSULE PO SCH (09:33)
[2017-01-02] MEDS: ACETAMINOPHEN 500 MG TABLET PO PRN ×2 (09:33→23:39)
[2017-01-02] MEDS: lamoTRIgine 100 MG TABLET PO SCH ×2 (09:33→21:01)
[2017-01-02] MEDS: CALCIUM CARBONATE/VITAMIN D3 1 TAB TABLET PO SCH ×2 (09:33→21:00)
[2017-01-02] MEDS: ASCORBIC ACID 500 MG TABLET PO SCH (09:33)
[2017-01-02] MEDS: MELOXICAM 15 MG TABLET PO SCH (09:33)
[2017-01-02] MEDS: PARoxetine HCL 20 MG TABLET PO SCH (09:34)
[2017-01-02] MEDS: TOPIRAMATE 50 MG TABLET PO SCH ×2 (09:34→21:01)
[2017-01-02] MEDS: AMMONIUM LACTATE 225 APPL BTL TP SCH ×2 (13:50→21:03)
[2017-01-02] MEDS: SIMVASTATIN 20 MG TABLET PO SCH (21:01)
[2017-01-03 06:33] LABS: BUN/Creatinine Ratio 10.7 (9.0-21.6); Calcium * 8.8 mg/dL (7.9-10.9); Estimated Creat Clear 32.2; Potassium 3.3 mmol/L (3.4-4.6)
[2017-01-03 06:41] LABS: Anion Gap 14.2 mmol/L (6.8-13.8); Carbon Dioxide 23.1 mmol/L (24-32.6)
[2017-01-03] MEDS: ACETAMINOPHEN 500 MG TABLET PO PRN ×2 (08:13→16:40)
[2017-01-03] MEDS: PARoxetine HCL 20 MG TABLET PO SCH (09:10)
[2017-01-03] MEDS: CHOLECALCIFEROL 1,000 UNIT CAPSULE PO SCH (09:10)
[2017-01-03] MEDS: CALCIUM CARBONATE/VITAMIN D3 1 TAB TABLET PO SCH ×2 (09:10→21:01)
[2017-01-03] MEDS: lamoTRIgine 100 MG TABLET PO SCH ×2 (09:10→21:02)
[2017-01-03] MEDS: TOPIRAMATE 50 MG TABLET PO SCH ×2 (09:10→21:01)
[2017-01-03] MEDS: MELOXICAM 15 MG TABLET PO SCH (09:10)
[2017-01-03] MEDS: ASCORBIC ACID 500 MG TABLET PO SCH (09:11)
[2017-01-03] MEDS: AMMONIUM LACTATE 225 APPL BTL TP SCH ×2 (09:11→21:05)
[2017-01-03] MEDS: NORMAL SALINE 1,000 ML IV PRN ×2 (12:58→23:04)
[2017-01-03] MEDS: CIPROFLOXACIN LACTATE/D5W 400 MG/200 ML BAG IV SCH (14:09)
[2017-01-03] MEDS: SIMVASTATIN 20 MG TABLET PO SCH (21:02)
--- NOTE | 2017-01-03 23:42 | PN ---
Subjective - Date and Time Seen Date: 01/03/17 Time: 16:45 Subjective Narrative: Reports suprapubic pain, does not feel well. Feels sick to stomach and weak. Objective - Vitals Vitals: Last Vital Signs Temp 36.8 C 01/03/17 20:00 Pulse 84 01/03/17 20:00 Resp 17 01/03/17 20:00 BP 142/75 01/03/17 20:00 Pulse Ox 95 01/03/17 20:00 - Abnormal Lab Findings Abnormal Lab Findings: Abnormal Lab Results 01/03/17 Range/Units 06:20 Potassium 3.3 L (3.4-4.6) mmol/L Carbon Dioxide 23.1 L (24-32.6) mmol/L Anion Gap 14.2 H (6.8-13.8) mmol/L Creatinine 1.59 H (0.4-1.4) mg/dL Est GFR (Non-Af Amer) 42 L (60-130) mL/min - Exam Constitutional: Present: Oriented x3, Somnolent ENT Exam: Present: hearing grossly normal Respiratory: Present: lungs clear, normal breath sounds Cardiovascular/Chest: Present: regular rate, rhythm, no murmur Abdomen: Present: Normal bowel sounds, soft, nondistended, tender - suprapubic Skin Exam: Present: normal color, warm/dry, no cyanosis Assessment/Plan - Problems/Diagnosis (1) UTI (urinary tract infection) Problem: Acute Qualifiers: Urinary tract infection type: site unspecified Hematuria presence: without hematuria Qualified Code(s): N39.0 - Urinary tract infection, site not specified Narrative: UTI based on leukocytosis, fever, suspicious UA. Treating with Cipro. Patient has altered mental status with somnolence and per nursing is unable to get out of bed. This is changed from her baseline. Due to UTI with altered mental status she needs >2 midnights and expect 2-5 days of inpatient treatment. Monitor urine culture.
[2017-01-04] MEDS: CIPROFLOXACIN LACTATE/D5W 400 MG/200 ML BAG IV SCH ×3 (00:39→23:54)
[2017-01-04] MEDS: ACETAMINOPHEN 500 MG TABLET PO PRN ×2 (00:40→22:41)
[2017-01-04] MEDS: CHOLECALCIFEROL 1,000 UNIT CAPSULE PO SCH (08:41)
[2017-01-04] MEDS: ASCORBIC ACID 500 MG TABLET PO SCH (08:41)
[2017-01-04] MEDS: lamoTRIgine 100 MG TABLET PO SCH ×2 (08:41→20:58)
[2017-01-04] MEDS: PARoxetine HCL 20 MG TABLET PO SCH (08:41)
[2017-01-04] MEDS: TOPIRAMATE 50 MG TABLET PO SCH ×2 (08:41→20:58)
[2017-01-04] MEDS: CALCIUM CARBONATE/VITAMIN D3 1 TAB TABLET PO SCH ×2 (08:41→20:58)
[2017-01-04] MEDS: MELOXICAM 15 MG TABLET PO SCH (08:41)
[2017-01-04] MEDS: AMMONIUM LACTATE 225 APPL BTL TP SCH ×2 (08:42→20:59)
[2017-01-04] MEDS: NORMAL SALINE 1,000 ML IV PRN ×2 (10:20→22:42)
--- NOTE | 2017-01-04 12:47 | PN ---
Subjective - Date and Time Seen Date: 01/04/17 Time: 12:47 Subjective Narrative: Soraida reports feeling better. Feels ready to go home. Nursing reports she is max 2-3 assist to walk and is not like this at home. Patient has no concerns, but reports walking normally. Objective - Vitals Vitals: Last Vital Signs Temp 37 C 01/04/17 11:36 Pulse 88 01/04/17 11:36 Resp 20 01/04/17 11:36 BP 148/74 01/04/17 11:36 Pulse Ox 99 01/04/17 11:36 - Exam Constitutional: Present: Alert, Oriented x3, Cooperative ENT Exam: Present: hearing grossly normal Respiratory: Present: lungs clear, normal breath sounds Cardiovascular/Chest: Present: regular rate, rhythm, no murmur Abdomen: Present: Normal bowel sounds, soft, nontender, nondistended Skin Exam: Present: normal color, warm/dry, no cyanosis Assessment/Plan - Problems/Diagnosis (1) Gait disturbance Problem: Acute (2) UTI (urinary tract infection) Problem: Acute Qualifiers: Urinary tract infection type: site unspecified Hematuria presence: without hematuria Qualified Code(s): N39.0 - Urinary tract infection, site not specified Narrative: Suspect UTI based on fever, leukocytosis, and suspicious UA. Culture negative. On Cipro. Clinically improved today. Abdominal pain resolved. Patient appears more alert. Gait is still off, but suspect this from UTI. MRI obtained to evaluate for stroke. No evidence for stroke. (3) Fever Problem: Acute
[2017-01-04 13:30] LABS: Hematocrit 32.8 % (37.0-47.0); Mean Cell Volume 91.4 fl (78-100); Mean Corpuscular Hemoglobin 30.6 pg (27-31); Mean Corpuscular Hgb Conc 33.5 g/dl (32-36); Mean Platelet Volume 10.9 fl (6.0-9.5); Platelet Count 210 K/mm3 (150-450); Red Blood Count 3.59 M/mm3 (4.2-5.4); White Blood Count 16.9 K/mm3 (4.0-10.5)
[2017-01-04 13:34] LABS: Total Cells Counted 100
[2017-01-04 13:42] LABS: Albumin * 2.2 gm/dl (3.4-5.0); Anion Gap 16.7 mmol/L (6.8-13.8); BUN/Creatinine Ratio 7.9 (9.0-21.6); Bilirubin, Total 0.5 mg/dL (0.0-1.1); Ca. Corrected For Albumin 10.2 mg/dL (8.4-10.2); Calcium * 9.1 mg/dL (7.9-10.9); Carbon Dioxide 22.6 mmol/L (24-32.6); Potassium 3.3 mmol/L (3.4-4.6); Total Protein 6.8 gm/dL (6.2-8.2)
[2017-01-04 13:52] LABS: Atypical (Reactive) Lymph 4 % (0-2); Band 5 % (0-2.0); Eosinophil 1 % (0-3); Lymphocyte 18 % (20-51); Monocyte 10 % (0-9); Neutrophil 62 % (42-75); Neutrophil # 10.5 K/mm3 (1.3-6.0)
[2017-01-04 13:54] LABS: Platelet Estimate Normal (NORMAL); RBC Morphology Normal (NORMAL)
[2017-01-04] MEDS: SIMVASTATIN 20 MG TABLET PO SCH (20:59)
[2017-01-05] MEDS: AMMONIUM LACTATE 225 APPL BTL TP SCH ×2 (08:33→20:08)
[2017-01-05] MEDS: MELOXICAM 15 MG TABLET PO SCH (08:33)
[2017-01-05] MEDS: CHOLECALCIFEROL 1,000 UNIT CAPSULE PO SCH (08:33)
[2017-01-05] MEDS: lamoTRIgine 100 MG TABLET PO SCH ×2 (08:33→20:07)
[2017-01-05] MEDS: ASCORBIC ACID 500 MG TABLET PO SCH (08:33)
[2017-01-05] MEDS: TOPIRAMATE 50 MG TABLET PO SCH ×2 (08:33→20:07)
[2017-01-05] MEDS: CALCIUM CARBONATE/VITAMIN D3 1 TAB TABLET PO SCH ×2 (08:33→20:07)
[2017-01-05] MEDS: PARoxetine HCL 20 MG TABLET PO SCH (08:33)
[2017-01-05] MEDS: ACETAMINOPHEN 500 MG TABLET PO PRN ×2 (08:37→20:06)
[2017-01-05] MEDS: NORMAL SALINE 1,000 ML IV PRN ×2 (09:22→20:04)
[2017-01-05 10:54] LABS: Hematocrit 32.6 % (37.0-47.0); Hemoglobin 11.1 gm/dL (12.5-16.0); Mean Cell Volume 89.6 fl (78-100); Mean Corpuscular Hemoglobin 30.5 pg (27-31); Mean Platelet Volume 10.6 fl (6.0-9.5); Platelet Count 234 K/mm3 (150-450); Red Blood Count 3.64 M/mm3 (4.2-5.4); Red Cell Distribution Width 14.3 % (11.5-14.0); White Blood Count 17.6 K/mm3 (4.0-10.5)
[2017-01-05 11:04] LABS: Total Cells Counted 100
[2017-01-05 11:14] LABS: Albumin * 2.2 gm/dl (3.4-5.0); Anion Gap 14.3 mmol/L (6.8-13.8); BUN/Creatinine Ratio 6.9 (9.0-21.6); Bilirubin, Total 0.5 mg/dL (0.0-1.1); Ca. Corrected For Albumin 10.1 mg/dL (8.4-10.2); Carbon Dioxide 20.8 mmol/L (24-32.6); Potassium 3.1 mmol/L (3.4-4.6); Total Protein 6.9 gm/dL (6.2-8.2)
[2017-01-05 11:18] LABS: Atypical (Reactive) Lymph 7 % (0-2); Eosinophil 2 % (0-3); Immature Granulocyte 2 (0-1); Lymphocyte 21 % (20-51); Monocyte 7 % (0-9); Neutrophil 61 % (42-75); Neutrophil # 10.7 K/mm3 (1.3-6.0)
[2017-01-05 11:19] LABS: Platelet Estimate Normal (NORMAL); RBC Morphology Normal (NORMAL)
[2017-01-05] MEDS: CLINDAMYCIN PHOSPHATE 600 MG in DEXTROSE 5 % IN WATER 100 ML IV SCH ×4 (11:33→20:31)
[2017-01-05] MEDS ORDERED: POTASSIUM CHLORIDE 20 MEQ TABLET.SA PO ONE (11:52)
[2017-01-05] MEDS: SIMVASTATIN 20 MG TABLET PO SCH (20:08)
--- NOTE | 2017-01-05 22:08 | PN ---
Subjective - Date and Time Seen Date: 01/05/17 Time: 12:30 Subjective Narrative: Soraida reports doing well. Reports she is back at her baseline and she has no problems. She was asked to walk and she attempted to walk with the walker. She was very unsteady and dragged her left foot. Needed two person assist to keep from falling. Home health nurse present and states that behavior is at her baseline but she normally does not need assistance to walk. Objective - Vitals Vitals: Last Vital Signs Temp 36.3 C L 01/05/17 19:00 Pulse 85 01/05/17 19:00 Resp 16 01/05/17 19:00 BP 124/74 01/05/17 19:00 Pulse Ox 94 01/05/17 19:00 - Abnormal Lab Findings Abnormal Lab Findings: Abnormal Lab Results 01/05/17 01/05/17 Range/Units 10:20 10:20 WBC 17.6 H (4.0-10.5) K/mm3 RBC 3.64 L (4.2-5.4) M/mm3 Hgb 11.1 L (12.5-16.0) gm/dL Hct 32.6 L (37.0-47.0) % RDW 14.3 H (11.5-14.0) % MPV 10.6 H (6.0-9.5) fl Immature Granulocytes 2 H (0-1) Neutrophils # (Manual) 10.7 H (1.3-6.0) K/mm3 Lymphocytes # (Manual) 3.7 H (1.5-3.5) k/mm3 Monocytes # (Manual) 1.2 H (0.0-1.0) k/mm3 Atypic/Reactive Lymphs 7 H (0-2) % Potassium 3.1 L (3.4-4.6) mmol/L Chloride 107 H (97-106) mmol/L Carbon Dioxide 20.8 L (24-32.6) mmol/L Anion Gap 14.3 H (6.8-13.8) mmol/L Creatinine 1.45 H (0.4-1.4) mg/dL Est GFR (Non-Af Amer) 47 L (60-130) mL/min BUN/Creatinine Ratio 6.9 L (9.0-21.6) Random Glucose 162 H (70-110) mg/dL Albumin 2.2 L (3.4-5.0) gm/dl - Exam Constitutional: Present: Alert, Oriented x3, Cooperative ENT Exam: Present: hearing grossly normal Respiratory: Present: lungs clear, normal breath sounds Cardiovascular/Chest: Present: regular rate, rhythm, no murmur Abdomen: Present: Normal bowel sounds, soft, nontender, nondistended Extremity: Present: other - Patient walked in [place] with walker. She moved very fast and often too fast for her walker. She moved shifted to the left with her left leg externally rotated and sluggish. Skin Exam: Present: normal color, warm/dry, no cyanosis Assessment/Plan - Problems/Diagnosis (1) Fever Problem: Acute Narrative: No obvious etiology. I suspect UTI due to dirty appearing UA, however first culture negative. Blood cultures negative. Chest xray negative for infiltrate. Blood cultures and and urine culture repeated today. Treating presumed UTI. Leukocytosis worsening today, changed cipro to clindamycin (limited due to allergies). Clinically other than gait disturbance patient is back to her baseline per home health nurse. (2) Imbalance Problem: Acute Narrative: Unclear etiology. Suspect from UTI. Brain MRI showed no acute changes. Continue to work with PT. Home health nurse wonders if she is just not used to the walker. She normally ambulates on her own without assistance of assistive device. Patient does have cerebral palsy but is normally independent. (3) UTI (urinary tract infection) Problem: Acute Narrative: Presumed based on fever, leukocytosis, and dirty UA. However culture negative. Treated with Cipro but WBC continued to worsen. Changed to clinda today based on allergies.
[2017-01-06] MEDS: CLINDAMYCIN PHOSPHATE 600 MG in DEXTROSE 5 % IN WATER 100 ML IV SCH ×6 (03:23→18:52)
[2017-01-06] MEDS: ACETAMINOPHEN 500 MG TABLET PO PRN ×2 (03:30→12:09)
[2017-01-06] MEDS: NORMAL SALINE 1,000 ML IV PRN ×2 (08:51→18:51)
[2017-01-06] MEDS: ASCORBIC ACID 500 MG TABLET PO SCH (08:52)
[2017-01-06] MEDS: CALCIUM CARBONATE/VITAMIN D3 1 TAB TABLET PO SCH ×2 (08:52→20:42)
[2017-01-06] MEDS: MELOXICAM 15 MG TABLET PO SCH (08:53)
[2017-01-06] MEDS: TOPIRAMATE 50 MG TABLET PO SCH ×2 (08:53→20:42)
[2017-01-06] MEDS: CHOLECALCIFEROL 1,000 UNIT CAPSULE PO SCH (08:53)
[2017-01-06] MEDS: PARoxetine HCL 20 MG TABLET PO SCH (08:53)
[2017-01-06] MEDS: AMMONIUM LACTATE 225 APPL BTL TP SCH ×2 (08:53→20:41)
[2017-01-06] MEDS: lamoTRIgine 100 MG TABLET PO SCH ×2 (08:53→20:41)
[2017-01-06 09:01] LABS: Hematocrit 31.5 % (37.0-47.0); Hemoglobin 10.4 gm/dL (12.5-16.0); Mean Cell Volume 92.4 fl (78-100); Mean Corpuscular Hemoglobin 30.5 pg (27-31); Mean Platelet Volume 11.6 fl (6.0-9.5); Platelet Count 249 K/mm3 (150-450); Red Blood Count 3.41 M/mm3 (4.2-5.4); Red Cell Distribution Width 14.9 % (11.5-14.0); White Blood Count 14.4 K/mm3 (4.0-10.5)
[2017-01-06 09:05] LABS: Total Cells Counted 100
[2017-01-06 09:09] LABS: Albumin * 2.1 gm/dl (3.4-5.0); Anion Gap 15.4 mmol/L (6.8-13.8); Bilirubin, Total 0.6 mg/dL (0.0-1.1); Ca. Corrected For Albumin 10.2 mg/dL (8.4-10.2); Carbon Dioxide 19.3 mmol/L (24-32.6); Potassium 4.7 mmol/L (3.4-4.6); Total Protein 7.2 gm/dL (6.2-8.2)
[2017-01-06 09:36] LABS: Band 1 % (0-2.0); Eosinophil 1 % (0-3); Lymphocyte 26 % (20-51); Monocyte 7 % (0-9); Neutrophil 65 % (42-75); Neutrophil # 9.4 K/mm3 (1.3-6.0); Platelet Estimate Normal (NORMAL)
[2017-01-06 09:37] LABS: RBC Morphology Normal (NORMAL)
[2017-01-06] MEDS ORDERED: HYDROcodone/ACETAMINOPHEN 1 EACH TABLET PO ONE (17:56)
[2017-01-06] MEDS: SIMVASTATIN 20 MG TABLET PO SCH (20:42)
--- NOTE | 2017-01-06 23:54 | PN ---
Subjective - Date and Time Seen Date: 01/06/17 Time: 16:45 Subjective Narrative: Soraida reports feeling better. Thinks she is walking better. Nursing reports still needing 2+ assistance. She has no focal complaints. Denies fever, chills, n/v. No pain. Objective - Vitals Vitals: Last Vital Signs Temp 36.7 C 01/06/17 22:18 Pulse 63 01/06/17 22:18 Resp 20 01/06/17 22:18 BP 126/66 01/06/17 22:18 Pulse Ox 92 01/06/17 22:18 - Abnormal Lab Findings Abnormal Lab Findings: Abnormal Lab Results 01/06/17 01/06/17 Range/Units 08:40 08:40 WBC 14.4 H (4.0-10.5) K/mm3 RBC 3.41 L (4.2-5.4) M/mm3 Hgb 10.4 L (12.5-16.0) gm/dL Hct 31.5 L (37.0-47.0) % RDW 14.9 H (11.5-14.0) % MPV 11.6 H (6.0-9.5) fl Neutrophils # (Manual) 9.4 H (1.3-6.0) K/mm3 Lymphocytes # (Manual) 3.7 H (1.5-3.5) k/mm3 Potassium 4.7 H D (3.4-4.6) mmol/L Chloride 107 H (97-106) mmol/L Carbon Dioxide 19.3 L (24-32.6) mmol/L Anion Gap 15.4 H (6.8-13.8) mmol/L Est GFR (Non-Af Amer) 50 L (60-130) mL/min BUN/Creatinine Ratio 8.0 L (9.0-21.6) Random Glucose 138 H (70-110) mg/dL AST 52 H (0-48) U/L Albumin 2.1 L (3.4-5.0) gm/dl - Exam Constitutional: Present: Alert, Oriented x3, Cooperative Respiratory: Present: lungs clear, normal breath sounds Cardiovascular/Chest: Present: regular rate, rhythm, no murmur Abdomen: Present: Normal bowel sounds, soft, nontender, nondistended Cauti Physician Documentation - Urinary Catheter Management Straight Urethral Indwelling: No Assessment/Plan - Problems/Diagnosis (1) UTI (urinary tract infection) Problem: Acute Qualifiers: Urinary tract infection type: site unspecified Hematuria presence: without hematuria Qualified Code(s): N39.0 - Urinary tract infection, site not specified Narrative: Continue antibiotics. Suspect UTI based on UA and leukocytosis, no other obvious infection. Urine culture negative but suspect was just unable to isolate anything. She is too weak to be discharged continue PT.
[2017-01-07] MEDS: CLINDAMYCIN PHOSPHATE 600 MG in DEXTROSE 5 % IN WATER 100 ML IV SCH ×6 (03:47→18:46)
[2017-01-07 05:39] LABS: Hemoglobin 11.3 gm/dL (12.5-16.0); Mean Cell Volume 88.9 fl (78-100); Mean Corpuscular Hemoglobin 30.5 pg (27-31); Mean Corpuscular Hgb Conc 34.2 g/dl (32-36); Mean Platelet Volume 10.3 fl (6.0-9.5); Platelet Count 332 K/mm3 (150-450); Red Blood Count 3.71 M/mm3 (4.2-5.4); Red Cell Distribution Width 14.5 % (11.5-14.0); White Blood Count 18.7 K/mm3 (4.0-10.5)
[2017-01-07 05:52] LABS: Total Cells Counted 100
[2017-01-07 06:03] LABS: Anion Gap 14.8 mmol/L (6.8-13.8); BUN/Creatinine Ratio 6.8 (9.0-21.6); Calcium * 9.4 mg/dL (7.9-10.9); Estimated Creat Clear 38.5; Potassium 3.8 mmol/L (3.4-4.6)
[2017-01-07 06:38] LABS: Band 2 % (0-2.0); Basophil 1 % (0-1); Eosinophil 3 % (0-3); Hypersegmented Polys 2+; Lymphocyte 38 % (20-51); Monocyte 1 % (0-9); Neutrophil 55 % (42-75); Neutrophil # 10.3 K/mm3 (1.3-6.0); Platelet Estimate Increased (NORMAL); Target Cells 2+
[2017-01-07 06:39] LABS: Toxic Granulation 2+
[2017-01-07] MEDS: NORMAL SALINE 1,000 ML IV PRN ×2 (06:55→18:51)
[2017-01-07 08:50] LABS: CKMB 70.4 ng/mL (0.0-9.0)
[2017-01-07] MEDS: ASCORBIC ACID 500 MG TABLET PO SCH (09:11)
[2017-01-07] MEDS: lamoTRIgine 100 MG TABLET PO SCH ×2 (09:11→20:14)
[2017-01-07] MEDS: CALCIUM CARBONATE/VITAMIN D3 1 TAB TABLET PO SCH ×2 (09:11→20:15)
[2017-01-07] MEDS: TOPIRAMATE 50 MG TABLET PO SCH ×2 (09:12→20:15)
[2017-01-07] MEDS: MELOXICAM 15 MG TABLET PO SCH (09:12)
[2017-01-07] MEDS: PARoxetine HCL 20 MG TABLET PO SCH (09:12)
[2017-01-07] MEDS: AMMONIUM LACTATE 225 APPL BTL TP SCH ×2 (09:13→20:17)
[2017-01-07] MEDS: CHOLECALCIFEROL 1,000 UNIT CAPSULE PO SCH (09:17)
[2017-01-07] MEDS ORDERED: RINGERS SOLUTION,LACTATED 1,000 ML IV ONE ×2 (11:40→12:00)
--- NOTE | 2017-01-07 12:09 | OR ---
Anesthesia Pre Procedure Eval Pre Procedure Evaluation: Last Vital Signs Temp 37.3 C 01/07/17 10:34 Pulse 85 01/07/17 10:34 Resp 18 01/07/17 10:34 BP 129/60 01/07/17 10:34 Pulse Ox 94 01/07/17 10:34 O2 Oxygen Delivery Method Room Air PRE PROCEDURE EVALUATION:: DATE: 01/07/2017 TIME: 11:15 INDICATIONS: Lumbar puncture for CSF analysis secondary to change in mental status and UTI PAST MEDICAL HISTORY: No previous lumbar puncture documented. EXAM: Lungs clear and equal. Heart rate regular. Procedure explained to the patient. Consent obtained from POA. ASSESSMENT OF MEDICAL STATUS: No contraindication to lumbar puncture. PLANNED PROCEDURE : Lumbar puncture for CSF analysis. Home Medications: HOME MEDICATIONS Lovastatin 40 mg PO HS 05/05/14 [Last Taken Unknown] Oxybutynin Chloride [Ditropan] 5 mg PO BID PRN 05/05/14 [Last Taken Unknown] Acetaminophen [Tylenol] 1,000 mg PO Q8H PRN 03/28/15 [Last Taken Unknown] Ammonium Lactate [Amlactin] 1 appl TP BID 01/02/16 [Last Taken Unknown] Ascorbic Acid [Vitamin C] 250 mg PO DAILY 01/02/16 [Last Taken Unknown] Cholecalciferol (Vitamin D3) [Vitamin D3] 1,000 unit PO DAILY 01/02/16 [Last Taken Unknown] Diphenoxylate HCl/Atropine [Lomotil 2.5-0.025 mg Tablet] 1 each PO PRN PRN 01/01 [Last Taken Unknown] Loratadine [Claritin] 10 mg PO DAILY PRN 01/02/16 [Last Taken Unknown] PARoxetine HCL [Paxil] 20 mg PO DAILY 01/02/16 [Last Taken Unknown] Topiramate [Topamax] 100 mg PO BID 01/02/16 [Last Taken Unknown] Bisacodyl [Laxative] 10 mg PO DAILY PRN 05/01/16 [Last Taken Unknown] Calcium Carbonate/Vitamin D3 [Oyster Shell 500-Vit D3 200 Tb] 1 each PO BID [Last Taken Unknown] Meclizine HCl [Antivert] 25 mg PO Q4H PRN 05/01/16 [Last Taken Unknown] Polyethylene Glycol 3350 [Miralax] 17 gm PO DAILY PRN 05/01/16 [Last Taken Unknown] Sodium Chloride [Saline Mist] 2 spray NS QID PRN 05/01/16 [Last Taken Unknown] guaiFENesin/DEXTROMETHORPHAN [Tussin Dm Syrup] 10 ml PO Q4H PRN 05/01/16 [Last Taken Unknown] lamoTRIgine [Lamictal] 200 mg PO BID 05/01/16 [Last Taken Unknown] Albuterol Sulfate [Proventil Hfa] 1 puff IH Q6H PRN 11/10/16 [Last Taken Unknown ] Benzonatate [Tessalon] 100 mg PO QID PRN 11/10/16 [Last Taken Unknown] Meloxicam [Mobic] 15 mg PO DAILY 11/10/16 [Last Taken Unknown] Ondansetron HCl [Zofran] 4 mg PO Q4H PRN 11/10/16 [Last Taken Unknown] Phenazopyridine HCl [Urinary Pain Relief] 95 mg PO TID PRN 11/10/16 [Last Taken Unknown] Calcium Carbonate [Tums Ultra Strength] 750 mg PO PRN PRN 01/02/17 [Last Taken Unknown] Mag Hydrox/Aluminum Hyd/Simeth [Maalox Advanced Suspension] 10 ml PO BID PRN [Last Taken Unknown] Menthol [Absorbine Pain Relieving] 1 appl TP TID PRN 01/02/17 [Last Taken Unknown] Topiramate [Topamax] 50 mg PO 0900 01/02/17 [Last Taken Unknown]
--- NOTE | 2017-01-07 12:11 | OR ---
Anesthesia Procedure Note - Anesthesia Procedure Note Narrative: Vital Signs - Last Taken Temp 37.3 C 01/07/17 10:34 Pulse 85 01/07/17 10:34 Resp 18 01/07/17 10:34 BP 129/60 01/07/17 10:34 Pulse Ox 94 01/07/17 10:34 O2 Oxygen Delivery Method Room Air 01/07/17 12:09 ANESTHESIA PROCEDURE NOTE Date of procedure: 01/07/2017. Time of procedure: 11:30. Performed by: Antony Roca CRNA [employer] Custodian: None . Preprocedure diagnosis: Change in mental status. UTI.. Post procedure diagnosis: Same. Procedure: Lumbar puncture Indications: CSF analysis. Findings: Patient placed in the sitting position. Her back was prepped with DuraPrep. Dura was punctured at the L4 5 interspace with a 22-gauge Yoder spinal needle. A total of 8 mL of clear CSF was obtained. 2 mL in each of 4 vials. Spinal needle was removed intact. A Band-Aid was applied to the puncture site. EBL: Minimal. Fluids: N/A. Specimen: N/A. Post procedure condition: The patient tolerated the procedure well. No complications were noted. Thank you for this consultation Antony Roca CRNA
[2017-01-07 12:29] LABS: CSF Appearance Clear (CLEAR); CSF Color Colorless (COLORLESS)
[2017-01-07 12:30] LABS: CSF RBC 6 /uL (0-10); CSF WBC 0 /uL (0-10)
[2017-01-07 13:28] LABS: Albumin * 2.5 gm/dl (3.4-5.0); Bilirubin Direct 0.2 mg/dL (0.0-0.3); Bilirubin, Total 0.4 mg/dL (0.0-1.1); Bilirubin,Indirect 0.2 mg/dL (0.1-0.7); Total Protein 6.9 gm/dL (6.2-8.2)
[2017-01-07] MEDS: SIMVASTATIN 20 MG TABLET PO SCH (20:15)
--- NOTE | 2017-01-07 20:38 | PN ---
Subjective - Date and Time Seen Date: 01/07/17 Time: 08:23 Subjective Narrative: c/o headache. c/o chills. states has been having intermittent headaches, worse than baseline headaches, with chills intermittently for the past 2 weeks. no abdominal pain. no n/v/d. still walking with gait disturbance. Objective - Review of Systems Generalized/Overall Review: Reports: Fatigue EENTM: Reports: No Symptoms Reported Respiratory: Reports: No Symptoms Reported Cardiac: Reports: No Symptoms Reported Abdominal: Reports: No Symptoms Reported Genitourinary Symptoms: Reports: No Symptoms Reported Musculoskeletal Complaints: Reports: No Symptoms Reported Neurological: Reports: Headache Skin: Reports: No Symptoms Reported Endocrine: Reports: No Symptoms Reported Misc: All systems neg except as marked - Vitals Vitals: Last Vital Signs Temp 37.3 C 01/07/17 16:00 Pulse 81 01/07/17 16:00 Resp 17 01/07/17 16:00 BP 131/65 01/07/17 16:00 Pulse Ox 94 01/07/17 16:00 - Abnormal Lab Findings Abnormal Lab Findings: Abnormal Lab Results 01/07/17 01/07/17 01/07/17 Range/Units 05:31 05:31 08:32 WBC 18.7 H D (4.0-10.5) K/mm3 RBC 3.71 L (4.2-5.4) M/mm3 Hgb 11.3 L (12.5-16.0) gm/dL Hct 33.0 L (37.0-47.0) % RDW 14.5 H (11.5-14.0) % MPV 10.3 H (6.0-9.5) fl Neutrophils # (Manual) 10.3 H (1.3-6.0) K/mm3 Lymphocytes # (Manual) 7.1 H (1.5-3.5) k/mm3 Basophils # (Manual) 0.2 H (0.0-0.1) k/mm3 Platelet Estimate Increased H (NORMAL) Carbon Dioxide 23.0 L (24-32.6) mmol/L Anion Gap 14.8 H (6.8-13.8) mmol/L Est GFR (Non-Af Amer) 52 L (60-130) mL/min BUN/Creatinine Ratio 6.8 L (9.0-21.6) CK-MB (CK-2) (0.0-9.0) ng/mL Albumin (3.4-5.0) gm/dl CSF Total Protein 47.0 H (15.0-45.0) mg/dL 01/07/17 01/07/17 Range/Units Unknown Unknown WBC (4.0-10.5) K/mm3 RBC (4.2-5.4) M/mm3 Hgb (12.5-16.0) gm/dL Hct (37.0-47.0) % RDW (11.5-14.0) % MPV (6.0-9.5) fl Neutrophils # (Manual) (1.3-6.0) K/mm3 Lymphocytes # (Manual) (1.5-3.5) k/mm3 Basophils # (Manual) (0.0-0.1) k/mm3 Platelet Estimate (NORMAL) Carbon Dioxide (24-32.6) mmol/L Anion Gap (6.8-13.8) mmol/L Est GFR (Non-Af Amer) (60-130) mL/min BUN/Creatinine Ratio (9.0-21.6) CK-MB (CK-2) 70.4 H (0.0-9.0) ng/mL Albumin 2.5 L (3.4-5.0) gm/dl CSF Total Protein (15.0-45.0) mg/dL - Exam Constitutional: Present: Alert, Cooperative, No distress ENT Exam: Present: hearing grossly normal Neck: Present: full range of motion, supple Breasts: Present: Exam deferred Respiratory: Present: lungs clear, normal breath sounds, no accessory muscle use Cardiovascular/Chest: Present: normal peripheral pulses, regular rate, rhythm, no chest tenderness Abdomen: Present: Normal bowel sounds, soft, nontender, nondistended /Rectal: Present: Exam deferred Extremity: Present: non-tender, normal inspection, no pedal edema Skin Exam: Present: normal color, warm/dry, no cyanosis Assessment/Plan Plan Narrative: Fever - 2nd set of urine culture and blood culture prelim neg - await final culture - treating presumed UTI - was originally on ciprofloxacin but changed to clindamycin due to increasing wbc and worsening symptoms - clindamycin 600 mg iv q 8 hours - Day #3 - septic workup so far is negative - WBC elevated today (01/07/17) - given headaches, fever, will do lumbar tap to rule this out as a source of infection - check labs in am. Imbalance / gait disturbance - unclear etiology - working with PT/OT - ? from presumed UTI - brain MRI showed no acute changes. - normally ambulates on own with no walker needed and no assistance. UTI - presumed source of infection - awaiting final result on 2nd urine culture - on clindamycin 600 mg iv q 8 hours - Day #3 - WBC went down initially after starting iv clindamycin but is elevated this am (01/07/17) - check labs in the am. worsening headache - given worsening headache, fever and worsening wbc will check lumbar tap to rule out this as source of infection Code status: full code VTE: lovenox / SCDs while in bed. gi proph: protonix po. - Problems/Diagnosis (1) Worsening headaches Problem: Acute (2) Fever Problem: Acute Qualifiers: Fever type: unspecified Qualified Code(s): R50.9 - Fever, unspecified (3) Imbalance Problem: Acute (4) UTI (urinary tract infection) Problem: Acute Qualifiers: Urinary tract infection type: site unspecified Hematuria presence: without hematuria Qualified Code(s): N39.0 - Urinary tract infection, site not specified
[2017-01-07] MEDS: ENOXAPARIN SODIUM 40 MG/0.4 ML SYRG SC SCH (22:14)
[2017-01-08] MEDS: CLINDAMYCIN PHOSPHATE 600 MG in DEXTROSE 5 % IN WATER 100 ML IV SCH ×2 (03:52)
[2017-01-08] MEDS: NORMAL SALINE 1,000 ML IV PRN ×2 (06:09→18:45)
[2017-01-08] MEDS: PANTOPRAZOLE SODIUM 40 MG TABLET.EC PO SCH (07:09)
[2017-01-08] MEDS: CALCIUM CARBONATE/VITAMIN D3 1 TAB TABLET PO SCH ×2 (08:16→20:33)
[2017-01-08] MEDS: AMMONIUM LACTATE 225 APPL BTL TP SCH ×2 (08:17→20:35)
[2017-01-08] MEDS: TOPIRAMATE 50 MG TABLET PO SCH ×2 (08:17→20:34)
[2017-01-08] MEDS: PARoxetine HCL 20 MG TABLET PO SCH (08:17)
[2017-01-08] MEDS: CHOLECALCIFEROL 1,000 UNIT CAPSULE PO SCH (08:17)
[2017-01-08] MEDS: lamoTRIgine 100 MG TABLET PO SCH ×2 (08:17→20:32)
[2017-01-08] MEDS: MELOXICAM 15 MG TABLET PO SCH (08:17)
[2017-01-08] MEDS: ASCORBIC ACID 500 MG TABLET PO SCH (08:17)
[2017-01-08 08:34] LABS: Hematocrit 35.8 % (37.0-47.0); Hemoglobin 12.1 gm/dL (12.5-16.0); Mean Cell Volume 89.3 fl (78-100); Mean Corpuscular Hemoglobin 30.2 pg (27-31); Mean Corpuscular Hgb Conc 33.8 g/dl (32-36); Mean Platelet Volume 10.3 fl (6.0-9.5); Platelet Count 401 K/mm3 (150-450); Red Blood Count 4.01 M/mm3 (4.2-5.4); Red Cell Distribution Width 14.6 % (11.5-14.0); White Blood Count 19.5 K/mm3 (4.0-10.5)
[2017-01-08 08:37] LABS: Total Cells Counted 100
[2017-01-08 09:07] LABS: Atypical (Reactive) Lymph 3 % (0-2); Eosinophil 1 % (0-3); Lymphocyte 34 % (20-51); Monocyte 7 % (0-9); Neutrophil 55 % (42-75); Neutrophil # 10.7 K/mm3 (1.3-6.0); Platelet Estimate Normal (NORMAL)
[2017-01-08 09:08] LABS: RBC Morphology Normal (NORMAL)
--- NOTE | 2017-01-08 11:07 | PN ---
Subjective - Date and Time Seen Date: 01/08/17 Time: 11:07 Subjective Narrative: still c/o headache. walking better but still with gait disturbance. fatigue - states "I just want to sleep" Objective - Review of Systems Generalized/Overall Review: Reports: Weakness, Fatigue. Denies: Fever EENTM: Reports: No Symptoms Reported Respiratory: Reports: No Symptoms Reported Cardiac: Reports: No Symptoms Reported Abdominal: Reports: No Symptoms Reported Genitourinary Symptoms: Reports: No Symptoms Reported Musculoskeletal Complaints: Reports: No Symptoms Reported Neurological: Reports: Headache Skin: Reports: No Symptoms Reported Endocrine: Reports: No Symptoms Reported Misc: All systems neg except as marked - Vitals Vitals: Last Vital Signs Temp 37.2 C 01/08/17 05:17 Pulse 60 01/08/17 05:17 Resp 18 01/08/17 05:17 BP 138/72 01/08/17 05:17 Pulse Ox 94 01/08/17 05:17 - Abnormal Lab Findings Abnormal Lab Findings: Abnormal Lab Results 01/07/17 01/07/17 01/08/17 Range/Units 08:32 Unknown 08:14 WBC 19.5 H (4.0-10.5) K/mm3 RBC 4.01 L (4.2-5.4) M/mm3 Hgb 12.1 L (12.5-16.0) gm/dL Hct 35.8 L (37.0-47.0) % RDW 14.6 H (11.5-14.0) % MPV 10.3 H (6.0-9.5) fl Neutrophils # (Manual) 10.7 H (1.3-6.0) K/mm3 Lymphocytes # (Manual) 6.6 H (1.5-3.5) k/mm3 Monocytes # (Manual) 1.4 H (0.0-1.0) k/mm3 Atypic/Reactive Lymphs 3 H (0-2) % ESR (0-15) mm/hr C-Reactive Prot, Quant (0.0-0.9) mg/dL Albumin 2.5 L (3.4-5.0) gm/dl CSF Total Protein 47.0 H (15.0-45.0) mg/dL 01/08/17 01/08/17 Range/Units 08:14 08:14 WBC (4.0-10.5) K/mm3 RBC (4.2-5.4) M/mm3 Hgb (12.5-16.0) gm/dL Hct (37.0-47.0) % RDW (11.5-14.0) % MPV (6.0-9.5) fl Neutrophils # (Manual) (1.3-6.0) K/mm3 Lymphocytes # (Manual) (1.5-3.5) k/mm3 Monocytes # (Manual) (0.0-1.0) k/mm3 Atypic/Reactive Lymphs (0-2) % ESR 100 H (0-15) mm/hr C-Reactive Prot, Quant 14.9 H (0.0-0.9) mg/dL Albumin (3.4-5.0) gm/dl CSF Total Protein (15.0-45.0) mg/dL - Exam Constitutional: Present: No distress, Other - sleepy ENT Exam: Present: hearing grossly normal Neck: Present: supple Breasts: Present: Exam deferred Respiratory: Present: lungs clear, normal breath sounds Cardiovascular/Chest: Present: normal peripheral pulses, regular rate, rhythm Abdomen: Present: soft, nontender, nondistended /Rectal: Present: Exam deferred Extremity: Present: non-tender, normal inspection Skin Exam: Present: normal color, warm/dry, no cyanosis Neurologic: Present: other - left hand grasp weaker than right. denies pain to touch in temporal area. no pulsation in temporal area. Cauti Physician Documentation - Urinary Catheter Management Straight Urethral Indwelling: No Assessment/Plan Plan Narrative: Fever - 2nd set of urine culture and blood culture prelim neg - stop clindamycin - no fever for over 48 hours - septic workup so far is negative - WBC elevated today (01/08/17) - lumbar tap revealed no source of infection 01/07/17 - check esr, crp for non infective source of elevated wbc. - check labs in am. Imbalance / gait disturbance - unclear etiology - working with PT/OT - brain MRI showed no acute changes. - normally ambulates on own with no walker needed and no assistance. UTI - urine culture negative so far - check abdominal xray - stop clindamycin for now - check labs in the am. worsening headache - given worsening headache, worsening wbc - check esr, crp for non infective source of elevated wbc - ? temporal arteritis - sleepy this am and unwilling to answer questions regarding headache pain elevated wbc - unclear etiology - check chest xray and abdominal xray today 01/08/17 Code status: full code VTE: lovenox / SCDs while in bed. gi proph: protonix po. - Problems/Diagnosis (1) Worsening headaches Problem: Acute (2) Fever Problem: Acute Qualifiers: Fever type: unspecified Qualified Code(s): R50.9 - Fever, unspecified (3) Imbalance Problem: Acute (4) UTI (urinary tract infection) Problem: Acute Qualifiers: Urinary tract infection type: site unspecified Hematuria presence: without hematuria Qualified Code(s): N39.0 - Urinary tract infection, site not specified (5) Elevated WBC count Problem: Acute Qualifiers: Leukocytosis type: unspecified Qualified Code(s): D72.829 - Elevated white blood cell count, unspecified
[2017-01-08] MEDS: SACCHAROMYCES BOULARDII 250 MG CAPSULE PO SCH ×2 (11:24→20:28)
[2017-01-08] MEDS: ACETAMINOPHEN 500 MG TABLET PO PRN (17:16)
[2017-01-08] MEDS ORDERED: predniSONE 20 MG TABLET PO ONE (19:00)
[2017-01-08] MEDS: ENOXAPARIN SODIUM 40 MG/0.4 ML SYRG SC SCH (20:32)
[2017-01-08] MEDS: SIMVASTATIN 20 MG TABLET PO SCH (20:33)
[2017-01-09] MEDS ORDERED: DIATRIZOATE MEGLU/DIATRIZO SOD 30 ML BTL PO ONE (05:00)
[2017-01-09] MEDS: NORMAL SALINE 1,000 ML IV PRN (05:46)
[2017-01-09] MEDS ORDERED: diphenhydrAMINE HCL 50 MG CAPSULE PO ONE (06:00)
[2017-01-09] MEDS ORDERED: predniSONE 20 MG TABLET PO ONE (06:00)
[2017-01-09 08:29] LABS: Hematocrit 34.2 % (37.0-47.0); Hemoglobin 11.5 gm/dL (12.5-16.0); Mean Cell Volume 90.5 fl (78-100); Mean Corpuscular Hemoglobin 30.4 pg (27-31); Mean Corpuscular Hgb Conc 33.6 g/dl (32-36); Mean Platelet Volume 9.9 fl (6.0-9.5); Platelet Count 399 K/mm3 (150-450); Red Blood Count 3.78 M/mm3 (4.2-5.4); White Blood Count 17.7 K/mm3 (4.0-10.5)
[2017-01-09 08:31] LABS: Total Cells Counted 100
[2017-01-09 08:41] LABS: Band 3 % (0-2.0); Immature Granulocyte 2 (0-1); Lymphocyte 13 % (20-51); Monocyte 2 % (0-9); Neutrophil 80 % (42-75); Neutrophil # 14.2 K/mm3 (1.3-6.0)
[2017-01-09 08:42] LABS: Platelet Estimate Normal (NORMAL); RBC Morphology Normal (NORMAL)
[2017-01-09] MEDS: lamoTRIgine 100 MG TABLET PO SCH ×2 (09:06→20:13)
[2017-01-09] MEDS: SACCHAROMYCES BOULARDII 250 MG CAPSULE PO SCH ×2 (09:06→20:11)
[2017-01-09] MEDS: CHOLECALCIFEROL 1,000 UNIT CAPSULE PO SCH (09:07)
[2017-01-09] MEDS: MELOXICAM 15 MG TABLET PO SCH (09:07)
[2017-01-09] MEDS: AMMONIUM LACTATE 225 APPL BTL TP SCH ×2 (09:07→20:15)
[2017-01-09] MEDS: TOPIRAMATE 50 MG TABLET PO SCH ×2 (09:07→20:12)
[2017-01-09] MEDS: PARoxetine HCL 20 MG TABLET PO SCH (09:07)
[2017-01-09] MEDS: PANTOPRAZOLE SODIUM 40 MG TABLET.EC PO SCH (09:08)
[2017-01-09] MEDS: ASCORBIC ACID 500 MG TABLET PO SCH (09:08)
[2017-01-09] MEDS: CALCIUM CARBONATE/VITAMIN D3 1 TAB TABLET PO SCH ×2 (09:08→20:11)
[2017-01-09 09:44] LABS: Albumin * 2.7 gm/dl (3.4-5.0); Anion Gap 16.1 mmol/L (6.8-13.8); BUN/Creatinine Ratio 11.4 (9.0-21.6); Bilirubin, Total 0.3 mg/dL (0.0-1.1); Calcium * 9.3 mg/dL (7.9-10.9); Carbon Dioxide 23.5 mmol/L (24-32.6); Potassium 4.6 mmol/L (3.4-4.6); Total Protein 7.5 gm/dL (6.2-8.2)
[2017-01-09] MEDS: ACETAMINOPHEN 500 MG TABLET PO PRN (11:39)
[2017-01-09] MEDS: MEROPENEM 1 GM in NORMAL SALINE 100 ML IV SCH ×2 (11:42→22:41)
--- NOTE | 2017-01-09 15:11 | PN ---
Addendum entered and electronically signed by Arleth Singh ARNP 01/09/17 18: 46: After urology surgery, Dr. Hi called and said that right kidney has purulent drainage, kidney stones appear to be chronically impacted and he recommends placing pt on fluconazole to cover for a fungal source of infection. Plan: If patient is not improving by tuesday (01/11/17), will need to repeat CT urogram to see if newly placed ureter stent is occluded. In addition, Dr. Hi wants to treat kidney stones on Tuesday01/14/17 (either inpatient if still here or outpatient). Original Note: Subjective - Date and Time Seen Date: 01/09/17 Time: 09:45 Subjective Narrative: feeling better. slept better last night. no headache currently Objective - Review of Systems Generalized/Overall Review: Reports: Fatigue EENTM: Reports: No Symptoms Reported Respiratory: Reports: No Symptoms Reported Cardiac: Reports: No Symptoms Reported Abdominal: Reports: No Symptoms Reported Genitourinary Symptoms: Reports: No Symptoms Reported Musculoskeletal Complaints: Reports: No Symptoms Reported Neurological: Reports: No Symptoms Reported Skin: Reports: No Symptoms Reported Endocrine: Reports: No Symptoms Reported Misc: All systems neg except as marked - Vitals Vitals: Last Vital Signs Temp 36.4 C L 01/09/17 14:22 Pulse 71 01/09/17 14:22 Resp 15 01/09/17 14:22 BP 139/79 01/09/17 14:22 Pulse Ox 93 01/09/17 14:22 - Abnormal Lab Findings Abnormal Lab Findings: Abnormal Lab Results 01/09/17 01/09/17 Range/Units 08:06 08:06 WBC 17.7 H (4.0-10.5) K/mm3 RBC 3.78 L (4.2-5.4) M/mm3 Hgb 11.5 L (12.5-16.0) gm/dL Hct 34.2 L (37.0-47.0) % RDW 15.0 H (11.5-14.0) % MPV 9.9 H (6.0-9.5) fl Neutrophils % (Manual) 80 H (42-75) % Band Neuts % (Manual) 3 H (0-2.0) % Lymphocytes % (Manual) 13 L (20-51) % Immature Granulocytes 2 H (0-1) Neutrophils # (Manual) 14.2 H (1.3-6.0) K/mm3 Carbon Dioxide 23.5 L (24-32.6) mmol/L Anion Gap 16.1 H (6.8-13.8) mmol/L Est GFR (Non-Af Amer) 52 L (60-130) mL/min Random Glucose 190 H D (70-110) mg/dL Albumin 2.7 L (3.4-5.0) gm/dl - Exam Constitutional: Present: Alert, Cooperative ENT Exam: Present: hearing grossly normal Neck: Present: full range of motion, supple Breasts: Present: Exam deferred Respiratory: Present: chest non-tender, lungs clear, normal breath sounds Cardiovascular/Chest: Present: normal peripheral pulses, regular rate, rhythm Abdomen: Present: soft, nontender, nondistended Extremity: Present: non-tender, normal inspection Skin Exam: Present: normal color, warm/dry, no cyanosis Cauti Physician Documentation - Urinary Catheter Management Straight Urethral Indwelling: No Assessment/Plan Plan Narrative: Fever - 2nd set of urine culture and blood culture neg - clindamycin stopped 01/08/17 - no fever for over 48 hours - WBC elevated today (01/09/17) at 17.5 - lumbar tap revealed no source of infection 01/07/17 - CT abdomen/pelvis done with am showed: - 1.5 cm stone right renal pelvix - 1.3 cm stone right prox. ureter - moderate right hydronephrosis - Start meropenum 1 gm q 8 hours - Day #1 - Dr. Hi consulted. - check labs in am. Renal calculus / Right hydropnephrosis - Dr. Hi consulted. - plan for surgery tonight 01/09/17 - NPO today 01/09/17 - consent obtained over the phone from POA. Imbalance / gait disturbance - unclear etiology - working with PT/OT - brain MRI showed no acute changes. - normally ambulates on own with no walker needed and no assistance. UTI - urine culture negative so far - CT abdomen / pelvis showed 2 significant renal calculus in right kidney / ureter - ? check sample from inside ureter / kidney and send for culture - start on meropenum 1 gm q 8 hours - Day #1 - Dr. Hi consulted - check labs in the am. headache - ? temporal arteritis - will take care of renal calculus and then follow up on this Code status: full code VTE: lovenox / SCDs while in bed. gi proph: protonix po. - Problems/Diagnosis (1) Worsening headaches Problem: Acute (2) Fever Problem: Acute Qualifiers: Fever type: unspecified Qualified Code(s): R50.9 - Fever, unspecified (3) Imbalance Problem: Acute (4) UTI (urinary tract infection) Problem: Acute Qualifiers: Urinary tract infection type: site unspecified Hematuria presence: without hematuria Qualified Code(s): N39.0 - Urinary tract infection, site not specified (5) Elevated WBC count Problem: Acute Qualifiers: Leukocytosis type: unspecified Qualified Code(s): D72.829 - Elevated white blood cell count, unspecified (6) Hydronephrosis with renal and ureteral calculus obstruction Problem: Acute
[2017-01-09] MEDS ORDERED: NORMAL SALINE 1,000 ML IV ONE ×2 (18:19→18:20)
[2017-01-09] MEDS: [UNRECOGNIZED DRUG - OTHER] IV SCH (20:08)
[2017-01-09] MEDS: SIMVASTATIN 20 MG TABLET PO SCH (20:13)
[2017-01-09] MEDS: ENOXAPARIN SODIUM 40 MG/0.4 ML SYRG SC SCH (20:13)
[2017-01-10] MEDS: NORMAL SALINE 1,000 ML IV PRN ×2 (04:43→13:51)
[2017-01-10 06:15] LABS: Hematocrit 35.2 % (37.0-47.0); Hemoglobin 11.8 gm/dL (12.5-16.0); Mean Corpuscular Hemoglobin 30.5 pg (27-31); Mean Corpuscular Hgb Conc 33.5 g/dl (32-36); Mean Platelet Volume 9.9 fl (6.0-9.5); Platelet Count 459 K/mm3 (150-450); Red Blood Count 3.87 M/mm3 (4.2-5.4); Red Cell Distribution Width 15.1 % (11.5-14.0); White Blood Count 24.4 K/mm3 (4.0-10.5)
[2017-01-10 06:17] LABS: Total Cells Counted 100
[2017-01-10 06:42] LABS: Band 1 % (0-2.0); Eosinophil 1 % (0-3); Lymphocyte 24 % (20-51); Monocyte 4 % (0-9); Neutrophil 70 % (42-75); Neutrophil # 17.1 K/mm3 (1.3-6.0); Platelet Estimate Increased (NORMAL); RBC Morphology Normal (NORMAL)
[2017-01-10 07:07] LABS: Anion Gap 14.6 mmol/L (6.8-13.8); Calcium * 9.1 mg/dL (7.9-10.9); Carbon Dioxide 22.5 mmol/L (24-32.6); Estimated Creat Clear 43.3; Potassium 3.1 mmol/L (3.4-4.6)
[2017-01-10] MEDS: PANTOPRAZOLE SODIUM 40 MG TABLET.EC PO SCH (07:11)
[2017-01-10] MEDS: TOPIRAMATE 50 MG TABLET PO SCH ×2 (09:27→20:34)
[2017-01-10] MEDS: CALCIUM CARBONATE/VITAMIN D3 1 TAB TABLET PO SCH ×2 (09:27→20:35)
[2017-01-10] MEDS: CHOLECALCIFEROL 1,000 UNIT CAPSULE PO SCH (09:27)
[2017-01-10] MEDS: PARoxetine HCL 20 MG TABLET PO SCH (09:28)
[2017-01-10] MEDS: lamoTRIgine 100 MG TABLET PO SCH ×2 (09:28→20:24)
[2017-01-10] MEDS: ASCORBIC ACID 500 MG TABLET PO SCH (09:28)
[2017-01-10] MEDS: SACCHAROMYCES BOULARDII 250 MG CAPSULE PO SCH ×2 (09:28→20:25)
[2017-01-10] MEDS: MELOXICAM 15 MG TABLET PO SCH (09:28)
[2017-01-10] MEDS: MEROPENEM 1 GM in NORMAL SALINE 100 ML IV SCH ×2 (10:17→22:11)
[2017-01-10] MEDS: AMMONIUM LACTATE 225 APPL BTL TP SCH ×2 (10:18→20:37)
[2017-01-10] MEDS ORDERED: POTASSIUM CHLORIDE 20 MEQ TABLET.SA PO ONE (18:19)
--- NOTE | 2017-01-10 18:25 | PN ---
Subjective - Date and Time Seen Date: 01/10/17 Time: 14:15 Subjective Narrative: doing better. working with pt. Objective - Review of Systems Generalized/Overall Review: Reports: Fatigue EENTM: Reports: No Symptoms Reported Respiratory: Reports: No Symptoms Reported Cardiac: Reports: No Symptoms Reported Abdominal: Reports: No Symptoms Reported Genitourinary Symptoms: Reports: No Symptoms Reported Musculoskeletal Complaints: Reports: No Symptoms Reported Neurological: Reports: No Symptoms Reported Skin: Reports: No Symptoms Reported Endocrine: Reports: No Symptoms Reported Misc: All systems neg except as marked - Vitals Vitals: Last Vital Signs Temp 36.8 C 01/10/17 13:43 Pulse 82 01/10/17 13:43 Resp 20 01/10/17 13:43 BP 126/74 01/10/17 13:43 Pulse Ox 98 01/10/17 13:43 - Abnormal Lab Findings Abnormal Lab Findings: Abnormal Lab Results 01/10/17 01/10/17 Range/Units 06:08 06:08 WBC 24.4 H D (4.0-10.5) K/mm3 RBC 3.87 L (4.2-5.4) M/mm3 Hgb 11.8 L (12.5-16.0) gm/dL Hct 35.2 L (37.0-47.0) % RDW 15.1 H (11.5-14.0) % Plt Count 459 H (150-450) K/mm3 MPV 9.9 H (6.0-9.5) fl Neutrophils # (Manual) 17.1 H (1.3-6.0) K/mm3 Lymphocytes # (Manual) 5.9 H (1.5-3.5) k/mm3 Platelet Estimate Increased H (NORMAL) Potassium 3.1 L D (3.4-4.6) mmol/L Chloride 108 H (97-106) mmol/L Carbon Dioxide 22.5 L (24-32.6) mmol/L Anion Gap 14.6 H (6.8-13.8) mmol/L Est GFR (Non-Af Amer) 59 L (60-130) mL/min Random Glucose 117 H D (70-110) mg/dL - Exam Constitutional: Present: Cooperative, No distress ENT Exam: Present: hearing grossly normal Neck: Present: full range of motion, supple Breasts: Present: Exam deferred Respiratory: Present: lungs clear, normal breath sounds Cardiovascular/Chest: Present: normal peripheral pulses, regular rate, rhythm Abdomen: Present: soft, nontender /Rectal: Present: Exam deferred Extremity: Present: non-tender, normal inspection Skin Exam: Present: normal color, warm/dry, no cyanosis Cauti Physician Documentation - Urinary Catheter Management Straight Urethral Indwelling: No Assessment/Plan Plan Narrative: Fever - 2nd set of urine culture and blood culture neg - clindamycin stopped 01/08/17 - no fever for over 48 hours - WBC elevated today (01/10/17) at 24.4 - lumbar tap revealed no source of infection 01/07/17 - CT abdomen/pelvis done with 01/09/17 showed: - 1.5 cm stone right renal pelvix - 1.3 cm stone right prox. ureter - moderate right hydronephrosis - Start meropenum 1 gm q 8 hours - Day #2 - on diflucan 400 mg iv q 24 hours - Day #2 - Dr. Faye consulted. - check labs in am. Renal calculus / Right hydropnephrosis - Dr. Faye consulted. - right ureter stent placed 01/09/17, kidney stones chronic per dr faye, purulent drainage from right kidney post stent placement Imbalance / gait disturbance - unclear etiology - working with PT/OT - brain MRI showed no acute changes. - normally ambulates on own with no walker needed and no assistance. UTI - urine culture negative so far - CT abdomen / pelvis showed 2 significant renal calculus in right kidney / ureter - on meropenum 1 gm q 8 hours - Day #2 - on diflucan 400 mg iv q 24 hours - Day #2 - Dr. Faye consulted - check labs in the am. headache - ? temporal arteritis - will take care of renal calculus and then follow up on this Code status: full code VTE: lovenox / SCDs while in bed. gi proph: protonix po. - Problems/Diagnosis (1) Worsening headaches Problem: Acute (2) Fever Problem: Acute Qualifiers: Fever type: unspecified Qualified Code(s): R50.9 - Fever, unspecified (3) Imbalance Problem: Acute (4) UTI (urinary tract infection) Problem: Acute Qualifiers: Urinary tract infection type: site unspecified Hematuria presence: without hematuria Qualified Code(s): N39.0 - Urinary tract infection, site not specified (5) Elevated WBC count Problem: Acute Qualifiers: Leukocytosis type: unspecified Qualified Code(s): D72.829 - Elevated white blood cell count, unspecified (6) Hydronephrosis with renal and ureteral calculus obstruction Problem: Acute
[2017-01-10] MEDS ORDERED: POTASSIUM CHLORIDE 20 MEQ TABLET.SA ONE (19:54)
[2017-01-10] MEDS: ENOXAPARIN SODIUM 40 MG/0.4 ML SYRG SC SCH (20:22)
[2017-01-10] MEDS: [UNRECOGNIZED DRUG - OTHER] IV SCH (20:23)
[2017-01-10] MEDS: SIMVASTATIN 20 MG TABLET PO SCH (20:26)
[2017-01-11] MEDS: ACETAMINOPHEN 500 MG TABLET PO PRN (07:36)
[2017-01-11] MEDS: PANTOPRAZOLE SODIUM 40 MG TABLET.EC PO SCH (07:36)
[2017-01-11] MEDS: TOPIRAMATE 50 MG TABLET PO SCH ×2 (08:39→21:13)
[2017-01-11] MEDS: SACCHAROMYCES BOULARDII 250 MG CAPSULE PO SCH ×2 (08:39→21:12)
[2017-01-11] MEDS: lamoTRIgine 100 MG TABLET PO SCH ×2 (08:39→21:13)
[2017-01-11] MEDS: CHOLECALCIFEROL 1,000 UNIT CAPSULE PO SCH (08:39)
[2017-01-11] MEDS: PARoxetine HCL 20 MG TABLET PO SCH (08:39)
[2017-01-11] MEDS: MELOXICAM 15 MG TABLET PO SCH (08:39)
[2017-01-11] MEDS: CALCIUM CARBONATE/VITAMIN D3 1 TAB TABLET PO SCH ×2 (08:40→21:13)
[2017-01-11] MEDS: ASCORBIC ACID 500 MG TABLET PO SCH (08:40)
[2017-01-11] MEDS: AMMONIUM LACTATE 225 APPL BTL TP SCH ×2 (08:40→21:12)
[2017-01-11] MEDS: MEROPENEM 1 GM in NORMAL SALINE 100 ML IV SCH ×2 (10:44→21:14)
[2017-01-11] MEDS: [UNRECOGNIZED DRUG - OTHER] IV SCH (18:56)
[2017-01-11] MEDS: SIMVASTATIN 20 MG TABLET PO SCH (21:13)
[2017-01-11] MEDS: ENOXAPARIN SODIUM 40 MG/0.4 ML SYRG SC SCH (21:14)
--- NOTE | 2017-01-11 23:39 | PN ---
Subjective - Date and Time Seen Date: 01/11/17 Time: 08:29 Subjective Narrative: Reports getting stronger. Denies pain, fever, chills. Objective - Vitals Vitals: Last Vital Signs Temp 36.2 C L 01/11/17 23:20 Pulse 81 01/11/17 23:20 Resp 17 01/11/17 23:20 BP 137/63 01/11/17 23:20 Pulse Ox 95 01/11/17 23:20 - Exam Constitutional: Present: Alert, Oriented x3, Cooperative Respiratory: Present: lungs clear, normal breath sounds Cardiovascular/Chest: Present: regular rate, rhythm, no murmur Abdomen: Present: Normal bowel sounds, soft, nontender, nondistended Cauti Physician Documentation - Urinary Catheter Management Straight Urethral Indwelling: No Assessment/Plan - Problems/Diagnosis (1) Hydronephrosis with renal and ureteral calculus obstruction Problem: Acute Narrative: Patient appears to be doing well. Will repeat CBC in AM. If not improved will repeat urogram. Has had stenting, but lots of pus present. (2) UTI (urinary tract infection) Problem: Acute Qualifiers: Urinary tract infection type: site unspecified Hematuria presence: without hematuria Qualified Code(s): N39.0 - Urinary tract infection, site not specified
[2017-01-12 05:50] LABS: Hematocrit 37.5 % (37.0-47.0); Hemoglobin 12.3 gm/dL (12.5-16.0); Mean Cell Volume 91.7 fl (78-100); Mean Corpuscular Hemoglobin 30.1 pg (27-31); Mean Corpuscular Hgb Conc 32.8 g/dl (32-36); Mean Platelet Volume 10.4 fl (6.0-9.5); Platelet Count 445 K/mm3 (150-450); Red Blood Count 4.09 M/mm3 (4.2-5.4); White Blood Count 16.8 K/mm3 (4.0-10.5)
[2017-01-12 05:56] LABS: Total Cells Counted 100
[2017-01-12] MEDS: ACETAMINOPHEN 500 MG TABLET PO PRN (06:07)
[2017-01-12 06:08] LABS: Albumin * 2.9 gm/dl (3.4-5.0); Anion Gap 14.1 mmol/L (6.8-13.8); Bilirubin, Total 0.4 mg/dL (0.0-1.1); Ca. Corrected For Albumin 10.1 mg/dL (8.4-10.2); Calcium * 9.5 mg/dL (7.9-10.9); Potassium 3.8 mmol/L (3.4-4.6); Total Protein 8.2 gm/dL (6.2-8.2)
[2017-01-12 06:15] LABS: Atypical (Reactive) Lymph 1 % (0-2); Dohle Bodies 1+; Lymphocyte 44 % (20-51); Monocyte 10 % (0-9); Neutrophil 45 % (42-75); Neutrophil # 7.6 K/mm3 (1.3-6.0); Platelet Estimate Normal (NORMAL)
[2017-01-12 06:17] LABS: Carbon Dioxide 26.6 mmol/L (24-32.6)
[2017-01-12] MEDS: PANTOPRAZOLE SODIUM 40 MG TABLET.EC PO SCH (06:37)
[2017-01-12] MEDS: MEROPENEM 1 GM in NORMAL SALINE 100 ML IV SCH ×2 (09:49→22:13)
[2017-01-12] MEDS: ASCORBIC ACID 500 MG TABLET PO SCH (09:50)
[2017-01-12] MEDS: CALCIUM CARBONATE/VITAMIN D3 1 TAB TABLET PO SCH ×2 (09:50→20:02)
[2017-01-12] MEDS: MELOXICAM 15 MG TABLET PO SCH (09:50)
[2017-01-12] MEDS: TOPIRAMATE 50 MG TABLET PO SCH ×2 (09:50→20:02)
[2017-01-12] MEDS: PARoxetine HCL 20 MG TABLET PO SCH (09:50)
[2017-01-12] MEDS: CHOLECALCIFEROL 1,000 UNIT CAPSULE PO SCH (09:50)
[2017-01-12] MEDS: SACCHAROMYCES BOULARDII 250 MG CAPSULE PO SCH ×2 (09:50→20:02)
[2017-01-12] MEDS: lamoTRIgine 100 MG TABLET PO SCH ×2 (09:50→20:03)
[2017-01-12] MEDS: AMMONIUM LACTATE 225 APPL BTL TP SCH ×2 (09:54→20:03)
[2017-01-12] MEDS: [UNRECOGNIZED DRUG - OTHER] IV SCH (20:02)
[2017-01-12] MEDS: ENOXAPARIN SODIUM 40 MG/0.4 ML SYRG SC SCH (20:03)
[2017-01-12] MEDS: SIMVASTATIN 20 MG TABLET PO SCH (20:03)
--- NOTE | 2017-01-12 22:25 | PN ---
Subjective - Date and Time Seen Date: 01/12/17 Time: 13:05 Subjective Narrative: Reports feeling better. Getting stronger. Per nursing still requiring 2+ assist to ambulate and not at her baseline. She has no focal concerns. Denies f/c/n/v. Objective - Vitals Vitals: Last Vital Signs Temp 36.4 C L 01/12/17 19:05 Pulse 85 01/12/17 19:05 Resp 16 01/12/17 19:05 BP 134/81 01/12/17 19:05 Pulse Ox 96 01/12/17 19:05 - Abnormal Lab Findings Abnormal Lab Findings: Abnormal Lab Results 01/12/17 01/12/17 Range/Units 05:46 05:46 WBC 16.8 H D (4.0-10.5) K/mm3 RBC 4.09 L (4.2-5.4) M/mm3 Hgb 12.3 L (12.5-16.0) gm/dL RDW 15.0 H (11.5-14.0) % MPV 10.4 H (6.0-9.5) fl Monocytes % (Manual) 10 H (0-9) % Neutrophils # (Manual) 7.6 H (1.3-6.0) K/mm3 Lymphocytes # (Manual) 7.4 H (1.5-3.5) k/mm3 Monocytes # (Manual) 1.7 H (0.0-1.0) k/mm3 Sodium 144 H (132-142) mmol/L Plasma Sodium 144 H (130-142) mmol/L Chloride 108 H (97-106) mmol/L Anion Gap 14.1 H (6.8-13.8) mmol/L AST 52 H (0-48) U/L Albumin 2.9 L (3.4-5.0) gm/dl - Exam Constitutional: Present: Alert, Oriented x3, Cooperative ENT Exam: Present: hearing grossly normal Respiratory: Present: lungs clear, normal breath sounds Cardiovascular/Chest: Present: regular rate, rhythm, no murmur Abdomen: Present: Normal bowel sounds, soft, nontender, nondistended Skin Exam: Present: normal color, warm/dry, no cyanosis Cauti Physician Documentation - Urinary Catheter Management Straight Urethral Indwelling: No Assessment/Plan Plan Narrative: Continue PT and antibiotics. Still too weak for discharge, looking into skilled facility for correction therapy. - Problems/Diagnosis (1) Hydronephrosis with renal and ureteral calculus obstruction Problem: Acute (2) UTI (urinary tract infection) Problem: Acute Qualifiers: Urinary tract infection type: site unspecified Hematuria presence: without hematuria Qualified Code(s): N39.0 - Urinary tract infection, site not specified
[2017-01-12 22:47] LABS: CSF IgG Synthesis -5.1 mg/24 h (-9.9 TO +3.3)
[2017-01-12 23:08] LABS: CSF IgG Index 0.47
[2017-01-13 05:45] LABS: Hematocrit 39.2 % (37.0-47.0); Hemoglobin 12.5 gm/dL (12.5-16.0); Mean Cell Volume 93.1 fl (78-100); Mean Corpuscular Hemoglobin 29.7 pg (27-31); Mean Corpuscular Hgb Conc 31.9 g/dl (32-36); Platelet Count 436 K/mm3 (150-450); Red Blood Count 4.21 M/mm3 (4.2-5.4); Red Cell Distribution Width 15.2 % (11.5-14.0); White Blood Count 13.9 K/mm3 (4.0-10.5)
[2017-01-13 05:52] LABS: Total Cells Counted 100
[2017-01-13 06:01] LABS: Albumin * 2.6 gm/dl (3.4-5.0); Anion Gap 15.2 mmol/L (6.8-13.8); BUN/Creatinine Ratio 12.7 (9.0-21.6); Bilirubin, Total 0.4 mg/dL (0.0-1.1); Ca. Corrected For Albumin 10.3 mg/dL (8.4-10.2); Calcium * 9.5 mg/dL (7.9-10.9); Potassium 3.2 mmol/L (3.4-4.6)
[2017-01-13 06:33] LABS: Atypical (Reactive) Lymph 4 % (0-2); Eosinophil 2 % (0-3); Lymphocyte 38 % (20-51); Monocyte 9 % (0-9); Neutrophil 47 % (42-75); Neutrophil # 6.5 K/mm3 (1.3-6.0)
[2017-01-13 06:34] LABS: Anisocytosis 1+; Platelet Estimate Normal (NORMAL)
[2017-01-13] MEDS: PANTOPRAZOLE SODIUM 40 MG TABLET.EC PO SCH (06:36)
[2017-01-13] MEDS: CALCIUM CARBONATE/VITAMIN D3 1 TAB TABLET PO SCH ×2 (08:20→21:07)
[2017-01-13] MEDS: ASCORBIC ACID 500 MG TABLET PO SCH (08:20)
[2017-01-13] MEDS: TOPIRAMATE 50 MG TABLET PO SCH ×2 (08:20→21:08)
[2017-01-13] MEDS: MELOXICAM 15 MG TABLET PO SCH (08:20)
[2017-01-13] MEDS: CHOLECALCIFEROL 1,000 UNIT CAPSULE PO SCH (08:20)
[2017-01-13] MEDS: SACCHAROMYCES BOULARDII 250 MG CAPSULE PO SCH ×2 (08:20→21:07)
[2017-01-13] MEDS: lamoTRIgine 100 MG TABLET PO SCH ×2 (08:21→21:08)
[2017-01-13] MEDS: PARoxetine HCL 20 MG TABLET PO SCH (08:21)
[2017-01-13] MEDS: AMMONIUM LACTATE 225 APPL BTL TP SCH ×2 (08:21→21:07)
[2017-01-13] MEDS ORDERED: POTASSIUM CHLORIDE 20 MEQ TABLET.SA PO ONE (09:01)
[2017-01-13] MEDS: MEROPENEM 1 GM in NORMAL SALINE 100 ML IV SCH ×2 (09:25→21:38)
[2017-01-13] MEDS: [UNRECOGNIZED DRUG - OTHER] IV SCH (18:16)
[2017-01-13] MEDS: ENOXAPARIN SODIUM 40 MG/0.4 ML SYRG SC SCH (21:07)
[2017-01-13] MEDS: SIMVASTATIN 20 MG TABLET PO SCH (21:08)
[2017-01-13 22:07] LABS: CSF Oligoclonal Bands NO BANDS (NO BANDS)
--- NOTE | 2017-01-13 23:49 | PN ---
Subjective - Date and Time Seen Date: 01/13/17 Time: 16:53 Subjective Narrative: Denies fever, chills, nausea or vomiting. Objective - Vitals Vitals: Last Vital Signs Temp 36.6 C 01/13/17 22:25 Pulse 78 01/13/17 22:25 Resp 20 01/13/17 22:25 BP 122/70 01/13/17 22:25 Pulse Ox 94 01/13/17 22:25 - Abnormal Lab Findings Abnormal Lab Findings: Abnormal Lab Results 01/13/17 01/13/17 Range/Units 05:38 05:38 WBC 13.9 H (4.0-10.5) K/mm3 MCHC 31.9 L (32-36) g/dl RDW 15.2 H (11.5-14.0) % MPV 10.0 H (6.0-9.5) fl Neutrophils # (Manual) 6.5 H (1.3-6.0) K/mm3 Lymphocytes # (Manual) 5.3 H (1.5-3.5) k/mm3 Monocytes # (Manual) 1.3 H (0.0-1.0) k/mm3 Atypic/Reactive Lymphs 4 H (0-2) % Sodium 144 H (132-142) mmol/L Plasma Sodium 144 H (130-142) mmol/L Potassium 3.2 L (3.4-4.6) mmol/L Chloride 107 H (97-106) mmol/L Anion Gap 15.2 H (6.8-13.8) mmol/L Random Glucose 113 H (70-110) mg/dL Calcium Adj for Albumin 10.3 H (8.4-10.2) mg/dL Albumin 2.6 L (3.4-5.0) gm/dl - Exam Constitutional: Present: Alert, Oriented x3, Cooperative ENT Exam: Present: hearing grossly normal Respiratory: Present: lungs clear, normal breath sounds Cardiovascular/Chest: Present: regular rate, rhythm, no murmur Abdomen: Present: Normal bowel sounds, soft, nontender, nondistended Cauti Physician Documentation - Urinary Catheter Management Straight Urethral Indwelling: No Assessment/Plan Plan Narrative: Continue treatment. Urology plans to get lithotripsy and stent exchange tomorrrow. - Problems/Diagnosis (1) Hydronephrosis with renal and ureteral calculus obstruction Problem: Acute (2) UTI (urinary tract infection) Problem: Acute Qualifiers: Urinary tract infection type: site unspecified Hematuria presence: without hematuria Qualified Code(s): N39.0 - Urinary tract infection, site not specified
[2017-01-14 05:39] LABS: Hematocrit 38.4 % (37.0-47.0); Hemoglobin 12.5 gm/dL (12.5-16.0); Mean Cell Volume 92.5 fl (78-100); Mean Corpuscular Hemoglobin 30.1 pg (27-31); Mean Corpuscular Hgb Conc 32.6 g/dl (32-36); Mean Platelet Volume 10.1 fl (6.0-9.5); Platelet Count 426 K/mm3 (150-450); Red Blood Count 4.15 M/mm3 (4.2-5.4); Red Cell Distribution Width 14.9 % (11.5-14.0); White Blood Count 14.4 K/mm3 (4.0-10.5)
[2017-01-14 05:44] LABS: Total Cells Counted 100
[2017-01-14 05:50] LABS: Albumin * 2.7 gm/dl (3.4-5.0); Anion Gap 14.9 mmol/L (6.8-13.8); BUN/Creatinine Ratio 13.1 (9.0-21.6); Bilirubin, Total 0.4 mg/dL (0.0-1.1); Ca. Corrected For Albumin 10.1 mg/dL (8.4-10.2); Calcium * 9.4 mg/dL (7.9-10.9); Carbon Dioxide 25.3 mmol/L (24-32.6); Potassium 4.2 mmol/L (3.4-4.6); Total Protein 7.2 gm/dL (6.2-8.2)
[2017-01-14] MEDS ORDERED: GENTAMICIN SULFATE 80 MG in DEXTROSE 5 % IN WATER 100 ML IV PRN ×2 (06:00)
[2017-01-14 06:13] LABS: Eosinophil 5 % (0-3); Lymphocyte 43 % (20-51); Monocyte 5 % (0-9); Neutrophil 47 % (42-75); Neutrophil # 6.8 K/mm3 (1.3-6.0); Platelet Estimate Normal (NORMAL); RBC Morphology Normal (NORMAL)
[2017-01-14] MEDS ORDERED: RINGERS SOLUTION,LACTATED 1,000 ML IV ONE (12:30)
[2017-01-14] MEDS: MEROPENEM 1 GM in NORMAL SALINE 100 ML IV SCH ×2 (14:27→22:02)
[2017-01-14] MEDS: CALCIUM CARBONATE/VITAMIN D3 1 TAB TABLET PO SCH ×2 (14:28→21:59)
[2017-01-14] MEDS: PANTOPRAZOLE SODIUM 40 MG TABLET.EC PO SCH (14:28)
[2017-01-14] MEDS: AMMONIUM LACTATE 225 APPL BTL TP SCH ×2 (14:28→22:00)
[2017-01-14] MEDS: SACCHAROMYCES BOULARDII 250 MG CAPSULE PO SCH ×2 (14:28→22:00)
[2017-01-14] MEDS: lamoTRIgine 100 MG TABLET PO SCH ×2 (14:29→22:00)
[2017-01-14] MEDS: MELOXICAM 15 MG TABLET PO SCH (14:29)
[2017-01-14] MEDS: PARoxetine HCL 20 MG TABLET PO SCH (14:29)
[2017-01-14] MEDS: TOPIRAMATE 50 MG TABLET PO SCH ×2 (14:30→22:01)
[2017-01-14] MEDS: CHOLECALCIFEROL 1,000 UNIT CAPSULE PO SCH (14:30)
[2017-01-14] MEDS: ASCORBIC ACID 500 MG TABLET PO SCH (14:30)
[2017-01-14] MEDS: [UNRECOGNIZED DRUG - OTHER] IV SCH (18:50)
[2017-01-14] MEDS: ENOXAPARIN SODIUM 40 MG/0.4 ML SYRG SC SCH (22:00)
[2017-01-14] MEDS: SIMVASTATIN 20 MG TABLET PO SCH (22:01)
--- NOTE | 2017-01-15 01:05 | PN ---
Subjective - Date and Time Seen Date: 01/14/17 Time: 08:45 Subjective Narrative: No concerns. Denies fever, chills, nausea, or vomiting. Objective - Vitals Vitals: Last Vital Signs Temp 36.7 C 01/14/17 14:30 Pulse 91 01/14/17 17:00 Resp 18 01/14/17 17:00 BP 120/60 01/14/17 17:00 Pulse Ox 100 01/14/17 17:00 - Abnormal Lab Findings Abnormal Lab Findings: Abnormal Lab Results 01/14/17 01/14/17 Range/Units 05:22 05:22 WBC 14.4 H (4.0-10.5) K/mm3 RBC 4.15 L (4.2-5.4) M/mm3 RDW 14.9 H (11.5-14.0) % MPV 10.1 H (6.0-9.5) fl Eosinophils % (Manual) 5 H (0-3) % Neutrophils # (Manual) 6.8 H (1.3-6.0) K/mm3 Lymphocytes # (Manual) 6.2 H (1.5-3.5) k/mm3 Sodium 143 H (132-142) mmol/L Plasma Sodium 143 H (130-142) mmol/L Chloride 107 H (97-106) mmol/L Anion Gap 14.9 H (6.8-13.8) mmol/L Albumin 2.7 L (3.4-5.0) gm/dl - Exam Constitutional: Present: Alert, Oriented x3, Cooperative ENT Exam: Present: hearing grossly normal Respiratory: Present: lungs clear, normal breath sounds Cardiovascular/Chest: Present: regular rate, rhythm, no murmur Abdomen: Present: Normal bowel sounds, soft, nontender, nondistended Skin Exam: Present: normal color, warm/dry, no cyanosis Cauti Physician Documentation - Urinary Catheter Management Straight Urethral Indwelling: No Assessment/Plan Plan Narrative: Soraida continues to improve. Urology to perform stent exchange and lithotripsy today. Continue therapy and antibiotics. - Problems/Diagnosis (1) Hydronephrosis with renal and ureteral calculus obstruction Problem: Acute (2) UTI (urinary tract infection) Problem: Acute Qualifiers: Urinary tract infection type: site unspecified Hematuria presence: without hematuria Qualified Code(s): N39.0 - Urinary tract infection, site not specified
[2017-01-15] MEDS: PANTOPRAZOLE SODIUM 40 MG TABLET.EC PO SCH (06:50)
[2017-01-15] MEDS: CHOLECALCIFEROL 1,000 UNIT CAPSULE PO SCH (08:50)
[2017-01-15] MEDS: TOPIRAMATE 50 MG TABLET PO SCH ×2 (08:50→20:44)
[2017-01-15] MEDS: SACCHAROMYCES BOULARDII 250 MG CAPSULE PO SCH ×2 (08:50→20:43)
[2017-01-15] MEDS: ASCORBIC ACID 500 MG TABLET PO SCH (08:50)
[2017-01-15] MEDS: lamoTRIgine 100 MG TABLET PO SCH ×2 (08:50→20:43)
[2017-01-15] MEDS: PARoxetine HCL 20 MG TABLET PO SCH (08:50)
[2017-01-15] MEDS: CALCIUM CARBONATE/VITAMIN D3 1 TAB TABLET PO SCH ×2 (08:50→20:43)
[2017-01-15] MEDS: MELOXICAM 15 MG TABLET PO SCH (08:50)
[2017-01-15] MEDS: AMMONIUM LACTATE 225 APPL BTL TP SCH ×2 (08:51→20:44)
[2017-01-15] MEDS: MEROPENEM 1 GM in NORMAL SALINE 100 ML IV SCH ×2 (10:17→22:43)
[2017-01-15] MEDS: ACETAMINOPHEN 500 MG TABLET PO PRN (10:19)
[2017-01-15] MEDS: [UNRECOGNIZED DRUG - OTHER] IV SCH (20:43)
[2017-01-15] MEDS: ENOXAPARIN SODIUM 40 MG/0.4 ML SYRG SC SCH (20:44)
[2017-01-15] MEDS: SIMVASTATIN 20 MG TABLET PO SCH (20:45)
--- NOTE | 2017-01-15 23:22 | PN ---
Subjective - Date and Time Seen Date: 01/15/17 Time: 12:30 Subjective Narrative: Denies fever, chills, nausea, vomiting. Objective - Vitals Vitals: Last Vital Signs Temp 37.1 C 01/15/17 18:14 Pulse 87 01/15/17 18:14 Resp 18 01/15/17 18:14 BP 139/81 01/15/17 18:14 Pulse Ox 96 01/15/17 18:14 - Exam Constitutional: Present: Alert, Oriented x3, Cooperative ENT Exam: Present: hearing grossly normal Respiratory: Present: lungs clear, normal breath sounds Cardiovascular/Chest: Present: regular rate, rhythm, no murmur Abdomen: Present: Normal bowel sounds, soft, nontender, nondistended Skin Exam: Present: normal color, warm/dry, no cyanosis Cauti Physician Documentation - Urinary Catheter Management Straight Urethral Indwelling: No Assessment/Plan Plan Narrative: Continuing to do well. Did well with lithotripsy. Strength is improving but not strong enough for home. Planning to discharge to [facility] on Tuesday for skilled therapy. - Problems/Diagnosis (1) Hydronephrosis with renal and ureteral calculus obstruction Problem: Acute (2) UTI (urinary tract infection) Problem: Acute Qualifiers: Urinary tract infection type: site unspecified Hematuria presence: without hematuria Qualified Code(s): N39.0 - Urinary tract infection, site not specified
[2017-01-16] MEDS: PANTOPRAZOLE SODIUM 40 MG TABLET.EC PO SCH (06:41)
[2017-01-16] MEDS: TOPIRAMATE 50 MG TABLET PO SCH ×2 (09:15→20:04)
[2017-01-16] MEDS: CHOLECALCIFEROL 1,000 UNIT CAPSULE PO SCH (09:15)
[2017-01-16] MEDS: MELOXICAM 15 MG TABLET PO SCH (09:16)
[2017-01-16] MEDS: CALCIUM CARBONATE/VITAMIN D3 1 TAB TABLET PO SCH ×2 (09:16→20:03)
[2017-01-16] MEDS: ASCORBIC ACID 500 MG TABLET PO SCH (09:16)
[2017-01-16] MEDS: lamoTRIgine 100 MG TABLET PO SCH ×2 (09:16→20:04)
[2017-01-16] MEDS: PARoxetine HCL 20 MG TABLET PO SCH (09:16)
[2017-01-16] MEDS: SACCHAROMYCES BOULARDII 250 MG CAPSULE PO SCH ×2 (09:16→20:03)
[2017-01-16] MEDS: AMMONIUM LACTATE 225 APPL BTL TP SCH ×2 (09:20→20:05)
[2017-01-16] MEDS: MEROPENEM 1 GM in NORMAL SALINE 100 ML IV SCH ×2 (11:01→22:00)
[2017-01-16] MEDS: [UNRECOGNIZED DRUG - OTHER] IV SCH (19:58)
[2017-01-16] MEDS: ENOXAPARIN SODIUM 40 MG/0.4 ML SYRG SC SCH (20:03)
[2017-01-16] MEDS: SIMVASTATIN 20 MG TABLET PO SCH (20:04)
--- NOTE | 2017-01-16 23:49 | PN ---
Subjective - Date and Time Seen Date: 01/16/17 Time: 21:30 Subjective Narrative: Soraida reports feeling better and getting stronger. She is up walking to the bathroom and in the chairez with a walker. She reports feeling steady on her walker. Nursing states she is still unsteady at times. She is unable to walk without assistance and balance is too unsteady for her to use a cane. Strength is good but balance is her main problem secondary to infection. She is continuing to improve but is unsafe without a walker. She is able to use a walker and this helps to complete her ADLs. Objective - Vitals Vitals: Last Vital Signs Temp 36.8 C 01/16/17 19:49 Pulse 80 01/16/17 19:49 Resp 18 01/16/17 19:49 BP 124/68 01/16/17 19:49 Pulse Ox 93 01/16/17 19:49 - Exam Constitutional: Present: Alert, Oriented x3, Cooperative ENT Exam: Present: hearing grossly normal Respiratory: Present: lungs clear, normal breath sounds Cardiovascular/Chest: Present: regular rate, rhythm, no murmur Abdomen: Present: Normal bowel sounds, soft, nontender, nondistended Skin Exam: Present: normal color, warm/dry, no cyanosis Cauti Physician Documentation - Urinary Catheter Management Straight Urethral Indwelling: No Assessment/Plan Plan Narrative: Continue Merem and fluconazole. Cutures negative, but pus visually seen in the kidney with stenting. Due to infection her balance has been significantly affected and she is unsafe to walk without assistance. She has improved but needs walker to complete ADLs. The patient believes she has improved enough to go home. PT and nursing have felt she still needs further assistance and would benefit from alf facility for another week or two. Will have PT reevaluate tomorrow and if felt safe to go home she may be discharged to home or nursing facility if not strong enough. Cultures negative, completing antibiotics tomorrow. - Problems/Diagnosis (1) Pyelonephritis Problem: Acute (2) Hydronephrosis with renal and ureteral calculus obstruction Problem: Acute (3) UTI (urinary tract infection) Problem: Acute Qualifiers: Urinary tract infection type: site unspecified Hematuria presence: without hematuria Qualified Code(s): N39.0 - Urinary tract infection, site not specified
[2017-01-17] MEDS: PANTOPRAZOLE SODIUM 40 MG TABLET.EC PO SCH (07:07)
[2017-01-17] MEDS: CHOLECALCIFEROL 1,000 UNIT CAPSULE PO SCH (08:42)
[2017-01-17] MEDS: PARoxetine HCL 20 MG TABLET PO SCH (08:42)
[2017-01-17] MEDS: ASCORBIC ACID 500 MG TABLET PO SCH (08:42)
[2017-01-17] MEDS: MELOXICAM 15 MG TABLET PO SCH (08:42)
[2017-01-17] MEDS: TOPIRAMATE 50 MG TABLET PO SCH (08:42)
[2017-01-17] MEDS: CALCIUM CARBONATE/VITAMIN D3 1 TAB TABLET PO SCH (08:42)
[2017-01-17] MEDS: lamoTRIgine 100 MG TABLET PO SCH (08:42)
[2017-01-17] MEDS: SACCHAROMYCES BOULARDII 250 MG CAPSULE PO SCH (08:43)
[2017-01-17] MEDS: AMMONIUM LACTATE 225 APPL BTL TP SCH (08:43)
[2017-01-17 09:44] LABS: Hematocrit 37.7 % (37.0-47.0); Hemoglobin 12.4 gm/dL (12.5-16.0); Mean Cell Volume 92.6 fl (78-100); Mean Corpuscular Hemoglobin 30.5 pg (27-31); Mean Corpuscular Hgb Conc 32.9 g/dl (32-36); Mean Platelet Volume 10.1 fl (6.0-9.5); Platelet Count 352 K/mm3 (150-450); Red Blood Count 4.07 M/mm3 (4.2-5.4); Red Cell Distribution Width 14.6 % (11.5-14.0)
[2017-01-17 09:48] LABS: Total Cells Counted 100
[2017-01-17 09:58] LABS: Albumin * 3.1 gm/dl (3.4-5.0); Anion Gap 11.4 mmol/L (6.8-13.8); BUN/Creatinine Ratio 9.8 (9.0-21.6); Bilirubin, Total 0.5 mg/dL (0.0-1.1); Ca. Corrected For Albumin 10.2 mg/dL (8.4-10.2); Calcium * 9.8 mg/dL (7.9-10.9); Carbon Dioxide 27.3 mmol/L (24-32.6); Potassium 3.7 mmol/L (3.4-4.6)
[2017-01-17 10:08] LABS: Band 1 % (0-2.0); Basophil 1 % (0-1); Eosinophil 1 % (0-3); Lymphocyte 61 % (20-51); Monocyte 4 % (0-9); Neutrophil 32 % (42-75); Neutrophil # 3.8 K/mm3 (1.3-6.0); Platelet Estimate Normal (NORMAL)
[2017-01-17 10:09] LABS: Dohle Bodies 1+; Target Cells Trace
[2017-01-17 10:57] VITALS: BP 124/76
--- NOTE | 2017-01-17 13:10 | DS ---
(1) Pyelonephritis Problem: Acute (2) Hydronephrosis with renal and ureteral calculus obstruction Problem: Acute (3) UTI (urinary tract infection) Problem: Acute Qualifiers: Urinary tract infection type: site unspecified Hematuria presence: without hematuria Qualified Code(s): N39.0 - Urinary tract infection, site not specified Description of Stay: Soraida is a 66 yo female admitted with acute weakness, confusion, and leukocytosis. Suspected sepsis based on these and started on antibiotics and given fluids. UA was the only possible source of infection from investigation. Urine culture however returned negative. Confusion improved with antibiotics and fluids but she remained extremely weak with ataxic gait. Brain MRI was completed to evaluate for stroke. No evidence of infarction was seen. During most of her hospital course she denied most symptoms. She did report some abdominal pain after several days and abdominal imaging was obtained which showed potential stone. She was evaluated further and found to have hydronephrosis due to obstructing stone. Urology was consulted and performed cystoscopy with stenting. Several days later had lithotripsy and stent exchange. She continued antibiotics and antifungals due to the appearance of pus found on cystoscopy. She continued to work with therapy. She improved gradually with complete return of her baseline mentation. Strength and gait abnormality was slow to improve and we were looking [place] [facility] for skilled. During this process she finally made a significant improvement in her strength and returned to her baseline and was discharged to home. Procedures Performed: see notes below List Procedures: 01/09/17 - Cystoscopy with right ureteral stent placement 01/14/17 - Cystoscopy with lithotripsy and stent exchange Discharge Disposition: Home self care Disposition: Home self-care Condition: Good Discharge Activity: Activity as tolerated Discharge Diet: General/regular food Referrals: Brianda Crespo FNP [Primary Care Provider] - Brien Hi MD [Associate] - Problem Oriented Discharge Instructions to Patient/Family: Pyelonephritis, Adult, Kidney Stones, [id number] Additional Patient Instructions (free text): [facility] ongoing, please call and fax discharge information if pt goes to her home. Follow up with Dr. Butler 01/24 check in at 10:15 appt is 10:30. Follow up with Dr. Hi in [facility] 01/27 at 9:15 for stent removal. Complete Home Medications List: Complete Home Medication List: Christianoastatin 40 mg PO HS 05/05/14 Oxybutynin Chloride [Ditropan] 5 mg PO BID PRN 05/05/14 Acetaminophen [Tylenol] 1,000 mg PO Q8H PRN 03/28/15 Ammonium Lactate [Amlactin] 1 appl TP BID 01/02/16 Ascorbic Acid [Vitamin C] 250 mg PO DAILY 01/02/16 Cholecalciferol (Vitamin D3) [Vitamin D3] 1,000 unit PO DAILY 01/02/16 Diphenoxylate HCl/Atropine [Lomotil 2.5-0.025 mg Tablet] 1 each PO PRN PRN 01/01 Loratadine [Claritin] 10 mg PO DAILY PRN 01/02/16 PARoxetine HCL [Paxil] 20 mg PO DAILY 01/02/16 Topiramate [Topamax] 100 mg PO BID 01/02/16 Bisacodyl [Laxative] 10 mg PO DAILY PRN 05/01/16 Calcium Carbonate/Vitamin D3 [Oyster Shell 500-Vit D3 200 Tb] 1 each PO BID Meclizine HCl [Antivert] 25 mg PO Q4H PRN 05/01/16 Polyethylene Glycol 3350 [Miralax] 17 gm PO DAILY PRN 05/01/16 Sodium Chloride [Saline Mist] 2 spray NS QID PRN 05/01/16 guaiFENesin/DEXTROMETHORPHAN [Tussin Dm Syrup] 10 ml PO Q4H PRN 05/01/16 lamoTRIgine [Lamictal] 200 mg PO BID 05/01/16 Albuterol Sulfate [Proventil Hfa] 1 puff IH Q6H PRN 11/10/16 Benzonatate [Tessalon] 100 mg PO QID PRN 11/10/16 Meloxicam [Mobic] 15 mg PO DAILY 11/10/16 Ondansetron HCl [Zofran] 4 mg PO Q4H PRN 11/10/16 Calcium Carbonate [Tums Ultra Strength] 750 mg PO PRN PRN 01/02/17 Mag Hydrox/Aluminum Hyd/Simeth [Maalox Advanced Suspension] 10 ml PO BID PRN Menthol [Absorbine Pain Relieving] 1 appl TP TID PRN 01/02/17 Topiramate [Topamax] 50 mg PO 0900 01/02/17
== END 2017-01-17 14:45 | disposition home or self-care (01) | DRG 690 ==
LOC: ER 21:33 → MS 01-02 02:09 → OBSVTOIN 01-03 16:54
PROVIDERS: ADMIT Nurse Practitioner; ATTEND Family Medicine
PROC: BT1DYZZ Fluoroscopy of Right Kidney, Ureter and Bladder using Other Contrast (ICD-10-PCS; 2017-01-09)
PROC: 0T768DZ Dilation of Right Ureter with Intraluminal Device, Via Natural or Artificial Opening Endoscopic (ICD-10-PCS; principal; 2017-01-09 16:39)
PROC: 0TF Urinary System, Fragmentation (ICD-10-PCS; 2017-01-14)
DX: N39.0 Urinary tract infection, site not specified (principal); N13.2 Hydronephrosis with renal and ureteral calculous obstruction; E87.6 Hypokalemia; K21.9 Gastro-esophageal reflux disease without esophagitis; R56.9 Unspecified convulsions; G80.9 Cerebral palsy, unspecified; R26.2 Difficulty in walking, not elsewhere classified; R51 Headache
CPT/HCPCS: 36415; 50080; 52332; 70450; 70553; 71010; 71020; 72125; 74020; 74177; 74420; 76000; 80048; 80053; 80076; 80185; 80307; 81001; 82040; 82042; 82550; 82553; 82784; 82945; 83605; 83873; 83916; 84146; 84157; 84443; 84484; 85007; 85025; 85610; 85652; 86038; 86140; 86618; 87040; 87070; 87077; 87086; 87186; 87205; 88108; 89051; 93005; 94762; 96365; 96367; 97110; 97112; 97116; 97163; 97530; 99284; G0378; G0480; G0481; G8978; G8979; G8980

== ENCOUNTER 2017-05-06 07:30 | Day surgery (SDC) | payer MEDICARE, OTHER ==
[~2017-05-06 07:30] MED LIST: ACETAMINOPHEN WITH CODEINE 1 EACH TABLET PO PRN; KETOROLAC TROMETHAMINE 15 MG/ML VIAL IV PRN; LEVOFLOXACIN/D5W 500 MG/100 ML BAG IV PRN; ONDANSETRON HCL/PF 2 MG/ML VIAL IV PRN; OXYBUTYNIN CHLORIDE 5 MG TABLET PO PRN; RINGER'S SOLUTION,LACTATED 1,000 ML IV PRN; oxyCODONE HCL/ACETAMINOPHEN 1 TAB TABLET PO PRN
[2017-05-06] MEDS ORDERED: RINGER'S SOLUTION,LACTATED 1,000 ML IV ONE (08:30)
[2017-05-06 11:09] VITALS: BP 137/75
[2017-05-11 16:17] LABS: Stone Composition 2 DNR
== END 2017-05-06 07:31 | disposition home or self-care (01) ==
LOC: AMB 07:30
PROVIDERS: ATTEND Urology
PROC: 0T768DZ Dilation of Right Ureter with Intraluminal Device, Via Natural or Artificial Opening Endoscopic (ICD-10-PCS; 2017-05-06)
PROC: 0TF38ZZ Fragmentation in Right Kidney Pelvis, Via Natural or Artificial Opening Endoscopic (ICD-10-PCS; principal; 2017-05-06 08:30)
DX: N20.0 Calculus of kidney (principal); N20.1 Calculus of ureter; E78.00 Pure hypercholesterolemia, unspecified; E66.9 Obesity, unspecified; Z68.33 Body mass index [BMI] 33.0-33.9, adult

== ENCOUNTER 2017-05-13 07:08 | Day surgery (SDC) | payer MEDICARE, OTHER ==
[~2017-05-13 07:08] MED LIST changes: -ACETAMINOPHEN WITH CODEINE 1 EACH TABLET PO PRN; +CIPROFLOXACIN HCL 500 MG TABLET PO PRN; -KETOROLAC TROMETHAMINE 15 MG/ML VIAL IV PRN; -LEVOFLOXACIN/D5W 500 MG/100 ML BAG IV PRN; -ONDANSETRON HCL/PF 2 MG/ML VIAL IV PRN; -OXYBUTYNIN CHLORIDE 5 MG TABLET PO PRN; -RINGER'S SOLUTION,LACTATED 1,000 ML IV PRN; -oxyCODONE HCL/ACETAMINOPHEN 1 TAB TABLET PO PRN
[2017-05-13] MEDS: CIPROFLOXACIN HCL 500 MG TABLET PO ONE (07:36)
[2017-05-13] MEDS: LIDOCAINE HCL 10 APPL CARTRIDGE TP ONE (08:05)
[2017-05-13 08:57] VITALS: BP 135/77
== END 2017-05-13 07:09 | disposition home or self-care (01) ==
LOC: AMB 07:08
PROVIDERS: ATTEND Urology
PROC: 0TP98DZ Removal of Intraluminal Device from Ureter, Via Natural or Artificial Opening Endoscopic (ICD-10-PCS; principal; 2017-05-13 08:00)
DX: Z46.6 Encounter for fitting and adjustment of urinary device (principal); E78.00 Pure hypercholesterolemia, unspecified; E66.9 Obesity, unspecified; Z68.33 Body mass index [BMI] 33.0-33.9, adult

== ENCOUNTER 2017-09-14 17:50 | Emergency (ER) | payer MEDICARE, MEDICAID ==
[2017-09-14] MEDS ORDERED: ACETAMINOPHEN 325 MG TABLET PO ONE (19:00)
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
[2017-09-14 19:08] LABS: Hematocrit 43.2 % (37.0-47.0); Hemoglobin 14.1 gm/dL (12.5-16.0); Mean Cell Volume 94.1 fl (78-100); Mean Corpuscular Hemoglobin 30.7 pg (27-31); Mean Corpuscular Hgb Conc 32.6 g/dl (32-36); Mean Platelet Volume 10.5 fl (6.0-9.5); Neutrophil # 4.5 K/mm3 (1.3-6.0); Neutrophil % 47.7 % (42-75.0); Platelet Count 233 K/mm3 (150-450); Red Blood Count 4.59 M/mm3 (4.2-5.4); Red Cell Distribution Width 14.6 % (11.5-14.0); White Blood Count 9.4 K/mm3 (4.0-10.5)
[2017-09-14] MEDS ORDERED: ACETAMINOPHEN 325 MG TABLET ONE (19:09)
[2017-09-14 19:22] LABS: Albumin * 4.1 gm/dl (3.4-5.0); Anion Gap 14.1 mmol/L (6.8-13.8); Bilirubin, Total 0.4 mg/dL (0.0-1.1); CRP 0.8 mg/dL (0.0-0.9); Ca. Corrected For Albumin 9.7 mg/dL (8.4-10.2); Calcium * 10.1 mg/dL (7.9-10.9); Potassium 4.1 mmol/L (3.4-4.6); Total Protein 8.1 gm/dL (6.2-8.2)
[2017-09-14 20:12] LABS: Urine Bilirubin Negative (NEGATIVE); Urine Blood Negative /ul (NEGATIVE); Urine Ketone Negative (NEGATIVE); Urine Nitrite Negative (NEGATIVE); Urine Protein 100 mg/dL (NEGATIVE); Urine Urobilinogen Normal (NORMAL); Urine pH 7.5 pH (5.0-7.0)
[2017-09-14 20:27] LABS: Urine Appearance Clear; Urine Color Yellow
[2017-09-14 20:28] LABS: Urine RBC None Seen /hpf (0-5); Urine WBC None Seen /hpf (0-5)
[2017-09-14 20:29] LABS: Urine Amorphous Sediment Moderate - 2+ (NONE-FEW); Urine Bacteria 2+
[2017-09-14 20:58] VITALS: BP 124/78
== END 2017-09-14 20:58 | disposition home or self-care (01) ==
LOC: ER 17:50
DX: R51 Headache (principal); R40.2410 Glasgow coma scale score 13-15, unspecified time; W19.XXXA Unspecified fall, initial encounter; Y92.008 Other place in unspecified non-institutional (private) residence as the place of occurrence of the external cause